=== PATIENT | female | born 1985 | race Caucasian/White ===

== ENCOUNTER 2020-10-31 10:04 | Outpatient (CLI) | payer OTHER, SELFPAY ==
--- NOTE | ~2020-10-31 | CT_ITS ---
EXAMINATION: CT abdomen pelvis w con INDICATION: Unspecified abdominal pain TECHNIQUE: Computed tomographic images of the abdomen and pelvis were obtained after the administrati on of 100 cc of Omnipaque 350 intravenous contrast. The dose-length product (DLP) was 357.30 mGy-cm. Automated exposure control and iterative reconstruction technique were employed. COMPARISON: 07/25/2017 FINDINGS: Minimal dependent atelectasis is present in the lung bases. The heart size is normal. The g allbladder is surgically absent. The liver is diffusely low in attenuation when compared with the spl een, consistent with hepatic steatosis. The spleen, pancreas, and adrenal glands are normal. The kidn eys are unremarkable. A moderate volume of colonic stool is present. No pathologically enlarged abdom inal or pelvic lymph nodes are identified. There is no free intraperitoneal gas or evidence of bowel obstruction. There is a small fat-containing umbilical hernia. IMPRESSION: 1. No CT correlate for the patient's symptoms. Reviewed, dictated and finalized at location B.
== END 2020-10-31 10:05 | disposition home or self-care (01) ==
LOC: ANHIMG 10:08
PROVIDERS: PCP Family Medicine; Visit Provider Nurse Practitioner Obstetrics & Gynecology
DX: R10.9 Unspecified abdominal pain (principal)
CPT/HCPCS: 74177; Q9967

== ENCOUNTER → 2020-12-27 09:20 | Outpatient (CLI) | payer OTHER, SELFPAY ==
--- NOTE | ~2020-12-27 | MMUS_ITS ---
EXAMINATION: MM diagnostic tiago BI w patricia, US breast BI complete HISTORY: Right breast lump TECHNIQUE: ML, MLO and craniocaudal 3-D tomosynthesis images of both breasts were performed and synth etic 2-D images were generated. CAD analysis was submitted and interpreted. High resolution bilateral complete breast ultrasound was performed. COMPARISON: None BREAST PARENCHYMAL COMPOSITION: The breasts are heterogeneously dense, which may obscure small masses . FINDINGS: MAMMOGRAPHIC FINDINGS: No reproducible mass or architectural distortion, malignant calcification, skin thickening or retract ion of either breast is detected. ULTRASOUND: At the area of palpable complaint of the right breast at 7:00 8 cm from the nipple there is an approx imately 7 mm ill-defined hypoechoic area with mild vascularity, without posterior shadowing. Six kumar h diagnostic right mammogram and right breast ultrasound follow-up are recommended. No suspicious mass or shadowing of either breast is detected otherwise. IMPRESSION: 1. Probably benign sonographic finding of right breast at 7:00 2. 6 month diagnostic right mammogram and right breast ultrasound follow-up are recommended. BI-RADS category 3, probably benign findings. Reviewed, dictated and finalized at location A. IMPRESSION: 1. Probably benign sonographic finding of right breast at 7:00 2. 6 month diagnostic right mammogram and right breast ultrasound follow-up are recommended. BI-RADS category 3, probably benign findings.
== END ==
PROVIDERS: Visit Provider Nurse Practitioner Obstetrics & Gynecology
DX: N63.10 Unspecified lump in the right breast, unspecified quadrant (principal); R92.8 Other abnormal and inconclusive findings on diagnostic imaging of breast
CPT/HCPCS: 76641; 77062; 77066; G0279

== ENCOUNTER 2022-06-10 15:20 | Observation (INO) | payer OTHER, SELFPAY ==
[2022-06-10 16:02] VITALS: BP 133/87; PULSE 95
[2022-06-10 16:15] VITALS: BP 135/89; PULSE 90; TEMP 37.1
[2022-06-10 16:31] VITALS: BMI 28.8
[2022-06-10 17:29] LABS: Basophils Absolute Auto 0.1 K/mm3 (0.0-0.1); Basophils Percent Auto 0.6 % (0.2-1.2); Eosinophils Absolute Auto 0.2 K/mm3 (0-0.3); Eosinophils Percent Auto 1.7 % (0-4.4); Hematocrit 29.3 % (37.0-47.0); Hemoglobin 9.7 g/dL (12.0-15.0); Immature Granulocyte Absolute 0.05 K/mm3 (0.00-0.031); Immature Granulocyte Percent A 0.5 % (0-0.5); Lymphocytes Absolute Auto 2.47 K/mm3 (0.9-3.2); Lymphocytes Percent Auto 22.3 % (18.3-44.2); Mean Corpuscular HGB Conc 33.1 g/dl (32-36); Mean Corpuscular Hemoglobin 31.8 pg (26-34); Mean Corpuscular Volume 96.1 fl (80-100); Mean Platelet Volume 10.5 fl (7.4-10.4); Monocytes Absolute Auto 0.5 K/mm3 (0.1-0.6); Monocytes Percent Auto 4.7 % (2.6-8.5); Neutrophils Absolute Auto 7.8 K/mm3 (1.3-6.7); Neutrophils Percent Auto 70.2 % (45.5-73.1); Platelet Count Result 332 k/mm3 (150-375); Red Blood Count 3.05 M/mm3 (4.2-5.4); Red Cell Distribution Width 13.4 % (11.5-14.5); White Blood Count 11.1 K/mm3 (4.5-10.0)
[2022-06-10] MEDS: SODIUM CHLORIDE 0.9% IV 1,000 ML 100 ML IV CONT (17:42)
[2022-06-10] MEDS: GENTAMICIN 80MG/SOD CHL 50 ML 80 MG/50 ML BAG 100 MG IVPB (17:42)
[2022-06-10 17:45] LABS: Alanine Aminotransferase 18 U/L (6-35); Albumin Level 3.5 g/dL (3.5-5.1); Alkaline Phosphatase 112 U/L (38-126); Anion Gap 6 mmol/L (8-16); Aspartate Amino Transferase 20 U/L (14-36); Bilirubin,Total 0.2 mg/dL (0.2-1.3); Blood Urea Nitrogen 3 mg/dL (7-17); Calcium 8.8 mg/dL (8.4-10.2); Carbon Dioxide 25 mmol/L (22-30); Chloride 105 mmol/L (98-107); Estimated CRCL calculation 120 ml/min; Estimated Glomerular Filt Rate > 60; Glucose 84 mg/dL (65-110); Potassium 2.9 mmol/L (3.4-5.0); Sodium 136 mmol/L (137-145)
[2022-06-10 19:20] VITALS: BP 135/89; PULSE 90
--- NOTE | 2022-06-10 19:28 | PC.NURSE ---
1520 Pt was sent from [facility] [place] for IV antibiotics for UTI. She has Hx sever UTI and ended up sepsis in 2013. Dr. Rosales reviewed culture sensitivities and gentamycin was ordered.
[2022-06-10] MEDS: ACETAMINOPHEN 500 MG TABLET 1000 MG PO (19:55)
[2022-06-11] VITALS (7 sets, daily range): BP systolic 112–148; BP diastolic 78–93; PULSE 68–93; TEMP 36.6–36.8; O2SAT 89–100
[2022-06-11] MEDS: GENTAMICIN 60 MG/50 ML NS 60 MG/50 ML BAG 100 MG IVPB ×3 (01:52→17:51)
--- NOTE | 2022-06-11 01:54 | PC.NURSE ---
pt sleeping. no complaints.
[2022-06-11 07:28] LABS: Glucose Point of Care 92 mg/dl (65-105)
--- NOTE | 2022-06-11 07:46 | PM.IMHP ---
H&P: HPI History of Present Illness Date/Time: 06/11/22 07:46 Chief Complaint: Urinary tract infection Narrative: this patient is a 36-year-old multiparous female at 24 weeks gestation with a long history of urinary tract infection and pyelonephritis. She is having routine cultures grew a multi resistant E coli. it was recommended that she get IV antibiotics. She is admitted here relatively asymptomatic for IV antibiotics. She receiving gentamicin. We will continue up to 6-8 doses For for incomplete 36-48 hours. She is afebrile. She denies any nausea, vomiting, fever, chills. She denies any chest pain or shortness of breath. Review of Systems Review of Systems: All systems reviewed & are unremarkable except as noted in HPI and below Constitutional: Constitutional: Denies chills, Denies fatigue, Denies fever(s) and Denies weakness Eyes: Eyes: Denies blurry vision, Denies change in vision, Denies loss of peripheral vision, Denies loss of vision, Denies other visual disturbances and Denies eye pain ENT: Denies vertigo, Denies dizziness, Denies hearing loss, Denies mouth pain, Denies nasal obstruction, Denies neck mass and Denies neck pain Cardiovascular: Cardiovascular: Denies chest pain, Denies diaphoresis, Denies syncope, Denies leg edema and Denies dyspnea Respiratory: Respiratory: Denies chest congestion, Denies cough, Denies hemoptysis, Denies dyspnea and Denies wheezing Gastrointestinal: Gastrointestinal: Denies abdominal pain, Denies constipation, Denies diarrhea, Denies nausea and Denies vomiting Genitourinary: Genitourinary: Denies hematuria, Denies change in libido, Denies nocturia, Denies genital lesions, Denies flank pain and Denies urinary urgency Musculoskeletal: Musculoskeletal: Denies abnormal gait, Denies back pain, Denies myalgias, Denies arthralgias, Denies joint swelling, Denies muscle weakness and Denies neck pain Integumentary/Breasts: Skin/Breast: Denies swelling, Denies breast pain, Denies breast mass, Denies dry skin, Denies nipple discharge, Denies unusual bruising and Denies jaundice Neurologic: Denies Neuro-related abnormal movements, Denies Abnormal speech present, Denies abnormal gait, Denies behavioral changes, Denies confusion, Denies vertigo, Denies dizziness, Denies syncope, Denies loss of vision, Denies memory loss, Denies convulsions and Denies weakness Psychiatric: Psychiatric: Denies abnormal sleep pattern, Denies behavioral changes, Denies change in libido, Denies confusion, Denies depression, Denies anhedonia and Denies memory loss Endocrine: Endocrine: Reports no additional endocrine complaints, Denies change in libido and Denies fatigue Hematologic/Lymphatic: Hematologic/Lymphatic: Reports no additional hematologic/lymphatic complaints Allergic/Immunologic: Allergic/Immunologic: Reports no additional allergic/immunologic complaints and Denies wheezing Meds Home Medications and Allergies Allergies Allergy/AdvReac Type Severity Reaction Status Date / Time codeine Allergy Unknown Hives / Verified 08/13/17 09:21 Red Face Penicillins Allergy Unknown Verified 07/25/17 16:32 Vital Signs Vital Signs - 24 hr 06/10/22 16:41 06/10/22 16:02 06/10/22 16:15 Temperature 98.7 F Pulse Rate 95 90 Blood Pressure 133/87 135/89 Blood Pressure [Left Arm] Pulse Oximetry Oxygen Delivery Room Air 06/11/22 07:11 06/11/22 07:17 06/10/22 19:20 Temperature 98.1 F Pulse Rate 68 90 Blood Pressure 112/78 Blood Pressure [Left Arm] 135/89 Pulse Oximetry 89 L 96 Oxygen Delivery Exam Const: General: cooperative, healthy appearing, comfortable and no acute distress; No confusion Orientation/consciousness: oriented to person, oriented to place, oriented to time and No confusion HENMT: Head: normal to inspection Ears: external ears normal Face/Nose/Sinus: Normal external nose present and normal facial exam Face and sinus: normal facial exam Eyes: General: appe
[2022-06-11 09:40] LABS: Glucose Point of Care 149 mg/dl (65-105)
[2022-06-11] MEDS: ACETAMINOPHEN 500 MG TABLET 1000 MG PO (13:04)
[2022-06-11 14:09] LABS: Glucose Point of Care 79 mg/dl (65-105)
[2022-06-11 18:06] LABS: Gentamicin Trough 1.1 ug/mL (<1.0)
[2022-06-11 19:22] LABS: Glucose Point of Care 99 mg/dl (65-105)
[2022-06-11 20:50] LABS: Gentamicin Peak 1.9 ug/mL (5.0-12.0)
[2022-06-11] MEDS: GENTAMICIN SULFATE INJ 120 MG in DEXTROSE 5% 100 ML 100 MG IVPB (22:08)
[2022-06-12 03:41] VITALS: BP 123/80; PULSE 67
[2022-06-12 03:45] VITALS: BP 128/79; PULSE 64
[2022-06-12 04:00] VITALS: BP 134/78; PULSE 68
[2022-06-12] MEDS: GENTAMICIN SULFATE INJ 120 MG in DEXTROSE 5% 100 ML 100 MG IVPB ×2 (06:30→14:00)
[2022-06-12 06:42] LABS: Glucose Point of Care 94 mg/dl (65-105)
[2022-06-12 11:00] VITALS: BP 131/90; PULSE 90; RESP 20; TEMP 36.4; O2SAT 100
[2022-06-12 11:01] VITALS: BP 131/91; PULSE 90
[2022-06-12 11:08] LABS: Glucose Point of Care 117 mg/dl (65-105)
--- NOTE | 2022-06-12 11:49 | PM.OBPNVD ---
OB - PN: Subj Subjective Date/time seen: 06/12/22 11:49 No complaints, no back pain, no fever, no nausea vomiting, no chills, good movement OB - PN: Obj Data Labs CBC & Chem 7: 06/10/22 17:06 06/10/22 17:06 Labs: Laboratory Results - last 24 hr 06/11/22 06/11/22 06/11/22 14:02 16:44 19:10 POC Capillary Glucose 79 99 Gentamicin Peak Gentamicin Trough 1.1 06/11/22 06/12/22 06/12/22 20:10 06:38 11:05 POC Capillary Glucose 94 117 H Gentamicin Peak 1.9 L Gentamicin Trough OB - PN A/P Assessment and Plan (1) History of pyelonephritis: Code(s): Z87.448 - Personal history of other diseases of urinary system Status: Acute (2) History of sepsis: Code(s): Z86.19 - Personal history of other infectious and parasitic diseases Status: Acute (3) Urinary tract infection: Code(s): N39.0 - Urinary tract infection, site not specified Status: Acute Plan this patient is a 36-year-old female, multiparous, with a 25 week Twin gestation and a history of urosepsis. she has a drug resistant E coli infection of the urinary tract. She was hospitalized for IV antibiotics. She has received many doses now of IV gentamicin over about a 36 hour period of time. She can receive 1 more. We going to start outpatient oral Macrobid. There is reassuring status x2. She will follow-up soon for repeat urine culture and routine care of twin gestation. Time Spent With Patient Time: Total time spent is greater than 50% in coordination of care (as documented) at patient's floor/unit and/or counseling patient: Review of Systems Review of Systems: All systems reviewed & are unremarkable except as noted in HPI and below Constitutional: Constitutional: Denies chills, Denies fatigue, Denies fever(s) and Denies weakness Eyes: Eyes: Denies blurry vision, Denies change in vision, Denies loss of peripheral vision, Denies loss of vision, Denies other visual disturbances and Denies eye pain ENT: Denies vertigo, Denies dizziness, Denies hearing loss, Denies mouth pain, Denies nasal obstruction, Denies neck mass and Denies neck pain Cardiovascular: Cardiovascular: Denies chest pain, Denies diaphoresis, Denies syncope, Denies leg edema and Denies dyspnea Respiratory: Respiratory: Denies chest congestion, Denies cough, Denies hemoptysis, Denies dyspnea and Denies wheezing Gastrointestinal: Gastrointestinal: Denies abdominal pain, Denies constipation, Denies diarrhea, Denies nausea and Denies vomiting Genitourinary: Genitourinary: Denies hematuria, Denies change in libido, Denies nocturia, Denies genital lesions, Denies flank pain and Denies urinary urgency Musculoskeletal: Musculoskeletal: Denies abnormal gait, Denies back pain, Denies myalgias, Denies arthralgias, Denies joint swelling, Denies muscle weakness and Denies neck pain Integumentary/Breasts: Skin/Breast: Denies swelling, Denies breast pain, Denies breast mass, Denies dry skin, Denies nipple discharge, Denies unusual bruising and Denies jaundice Neurologic: Denies Neuro-related abnormal movements, Denies Abnormal speech present, Denies abnormal gait, Denies behavioral changes, Denies confusion, Denies vertigo, Denies dizziness, Denies syncope, Denies loss of vision, Denies memory loss, Denies convulsions and Denies weakness Psychiatric: Psychiatric: Denies abnormal sleep pattern, Denies behavioral changes, Denies change in libido, Denies confusion, Denies depression, Denies anhedonia and Denies memory loss Endocrine: Endocrine: Reports no additional endocrine complaints, Denies change in libido and Denies fatigue Hematologic/Lymphatic: Hematologic/Lymphatic: Reports no additional hematologic/lymphatic complaints Allergic/Immunologic: Allergic/Immunologic: Reports no additional allergic/immunologic complaints and Denies wheezing Exam Const: General: cooperative, healthy appearing, comfortable and no
--- NOTE | 2022-06-12 11:55 | PM.OBDSVD ---
DS: Admitting Diagnosis Discharge Date 06/12/22 Admitting Diagnosis Urinary tract infection, drug resistance E coli OB - DS: Summary Hospital Course Hospital Course: 36-year-old multiparous female with twin gestation and history of urosepsis had a drug-resistant bacteria growing in her urine. She was admitted for IV antibiotics. She has been stable and asymptomatic throughout her stay. She has received multiple doses of gentamicin. She will be discharged. OB Procedures : Other ( IV antibiotics) OB Procedures Intrapartum: Other OB Procedures: : None Time Spent with Patient Time attestation: Total time spent providing and/or coordinating discharge services: DS: Data Data Completed and Pending Labs on day of discharge: Labs from last 24 hours 06/12/22 06/12/22 06/11/22 11:05 06:38 20:10 POC Capillary Glucose 117 H 94 Gentamicin Peak 1.9 L Gentamicin Trough 06/11/22 06/11/22 06/11/22 19:10 16:44 14:02 POC Capillary Glucose 99 79 Gentamicin Peak Gentamicin Trough 1.1 Discharge Plan Discharge Attending physician on discharge: Aakash Rosales Discharging Clinician: Aakash Rosales Anticipated Discharge Date/Time: 06/12/22 15:00 Patient Disposition: Home, Self-Care Activity: pelvic rest Diet: regular Discharge Instructions: OB ANTEPARTUM DISCHARGE INSTRUCTIONS This information is given to help you properly care for yourself at home after your discharge from the hospital. Follow these instructions until your doctor tells you otherwise. DIET: Advance As Tolerated ACTIVITY: As Tolerated RETURN TO LABOR AND DELIVERY IF YOU HAVE: Any Change In Baby's Normal Movement Pattern Any Leakage of Fluid Contractions 5-7 Minutes Apart with Increasing Intensity More than 4 Contractions in an Hour Vaginal Bleeding Warning Signs of Pre-term Labor as per Handout Additional Reasons to Return to Labor and Delivery: Contractions may feel like abdominal pain, tightening, cramping, pressure, back ache, or thigh ache. FOLLOW-UP CARE: Keep Next Scheduled Appointment To see Dr. Bobby Grant released to patient or family? N/A Medications from home returned to patient? N/A I Acknowledge Receipt of and Understand the Above Instructions I Have Received Written Pharmaceutical Information on Discharge Meds IF YOU HAVE ANY QUESTIONS REGARDING THESE INSTRUCTIONS, PLEASE CALL [phone]. IF PROBLEMS ARISE, CALL YOUR PROVIDER. IF EMERGENCY CARE IS NEEDED, [facility] EMERGENCY ROOM IS AVAILABLE 24 HOURS A DAY. Patient Instructions: Antibiotic Form Stand Alone Forms: General Discharge Information, Work/School Release IP Follow-up/Referrals: Aakash Rosales MD [Physician] - Discharge Medications: New nitrofurantoin monohyd/m-cryst [Macrobid] 100 mg Capsule 100 mg PO Q12H 10 Days Qty: 14 0RF Rx Instructions: must administer with a meal/food Date of admission: 06/10/22 15:20 Primary Care Provider: UNKNOWN,DOCTOR Admitting Provider: Aakash Rosales Attending physician on admission: Aakash Rosales Condition: Stable
== END 2022-06-12 14:55 | disposition home or self-care (01) ==
PROVIDERS: Admitting Provider Obstetrics & Gynecology; Visit Provider Obstetrics & Gynecology
DX: O23.42 Unspecified infection of urinary tract in pregnancy, second trimester (principal); N39.0 Urinary tract infection, site not specified; B96.20 Unspecified Escherichia coli [E. coli] as the cause of diseases classified elsewhere; Z87.448 Personal history of other diseases of urinary system; O23.02 Infections of kidney in pregnancy, second trimester; Z86.19 Personal history of other infectious and parasitic diseases; O30.002 Twin pregnancy, unspecified number of placenta and unspecified number of amniotic sacs, second trimester; Z3A.25 25 weeks gestation of pregnancy; Z23 Encounter for immunization
CPT/HCPCS: 36415; 59025; 80053; 80170; 82948; 85025; 90471; 90686; 96365; 96366; 96374; 96376; A9270; G0008; G0378; G0379; J1580; J7030

== ENCOUNTER 2022-07-19 16:01 | Outpatient (CLI) | payer OTHER, SELFPAY ==
[2022-07-19 16:15] VITALS: BP 142/96; PULSE 82
[2022-07-19 16:29] LABS: Basophils Absolute Auto 0.1 K/mm3 (0.0-0.1); Basophils Percent Auto 0.5 % (0.2-1.2); Eosinophils Absolute Auto 0.3 K/mm3 (0-0.3); Eosinophils Percent Auto 2.3 % (0-4.4); Hematocrit 32.7 % (37.0-47.0); Hemoglobin 10.5 g/dL (12.0-15.0); Immature Granulocyte Absolute 0.06 K/mm3 (0.00-0.031); Immature Granulocyte Percent A 0.5 % (0-0.5); Lymphocytes Absolute Auto 1.84 K/mm3 (0.9-3.2); Lymphocytes Percent Auto 16.6 % (18.3-44.2); Mean Corpuscular HGB Conc 32.1 g/dl (32-36); Mean Corpuscular Volume 96.5 fl (80-100); Mean Platelet Volume 10.8 fl (7.4-10.4); Monocytes Absolute Auto 0.7 K/mm3 (0.1-0.6); Monocytes Percent Auto 6.5 % (2.6-8.5); Neutrophils Absolute Auto 8.2 K/mm3 (1.3-6.7); Neutrophils Percent Auto 73.6 % (45.5-73.1); Platelet Count Result 290 k/mm3 (150-375); Red Blood Count 3.39 M/mm3 (4.2-5.4); Red Cell Distribution Width 13.2 % (11.5-14.5); White Blood Count 11.1 K/mm3 (4.5-10.0)
[2022-07-19 16:30] VITALS: BP 136/96; PULSE 96
[2022-07-19 16:40] LABS: Alanine Aminotransferase 45 U/L (6-35); Albumin Level 3.6 g/dL (3.5-5.1); Alkaline Phosphatase 214 U/L (38-126); Anion Gap 6 mmol/L (8-16); Aspartate Amino Transferase 36 U/L (14-36); Bilirubin,Total 0.2 mg/dL (0.2-1.3); Blood Urea Nitrogen 7 mg/dL (7-17); Calcium 8.3 mg/dL (8.4-10.2); Carbon Dioxide 22 mmol/L (22-30); Chloride 106 mmol/L (98-107); Estimated Glomerular Filt Rate > 60; Glucose 88 mg/dL (65-110); Potassium 3.6 mmol/L (3.4-5.0); Sodium 134 mmol/L (137-145); Uric Acid 5.3 mg/dL (2.5-7.5)
[2022-07-19 16:56] LABS: Add Urine Microscopic? NO; Appearance Urine Clear (Clear); Bilirubin Urine Negative (Negative); Blood Urine Negative (Negative); Color Urine Yellow (Yellow); Glucose Urine UA Negative (Negative); Ketones Urine Negative (Negative); Leukocyte Esterase Ur Negative LEU/UL (NEGATIVE); Nitrate Urine Negative (Negative); Protein Urine Negative (Negative); Specific Grav Ur <= 1.005 (1.001-1.035); Urobilinogen Urine 0.2 mg/dL (<2.0); pH Urine 6.5 (5.0-9.0)
[2022-07-19 16:59] LABS: Creatinine Urine 17.5 mg/dL; Total Protein Urine Random 15 mg/dL; Ur Ttl Prot Creatinine Ratio 0.86 mg/mg (0-0.20)
[2022-07-19 17:00] VITALS: BP 138/99; PULSE 97
--- NOTE | 2022-07-19 17:09 | PC.NURSE ---
Karon Mejias notified of BP's and lab results. Orders received to call same results to Dr Rosales.
--- NOTE | 2022-07-19 17:14 | PC.NURSE ---
Dr Rosales notified of lab results and BP's. [facility] home, patient to follow up in office on Friday for a [facility] referral.
[2022-07-19 17:15] VITALS: BP 145/108; PULSE 94
== END 2022-07-19 17:30 | disposition home or self-care (01) ==
LOC: ANHOBOP 16:05 → ANHOBPP 16:08
PROVIDERS: Visit Provider Advanced Practice Midwife
DX: O13.9 Gestational [pregnancy-induced] hypertension without significant proteinuria, unspecified trimester (principal); Z3A.00 Weeks of gestation of pregnancy not specified
CPT/HCPCS: 36415; 59025; 80053; 81003; 82570; 84156; 84550; 85025; 87086; 99199

== ENCOUNTER 2022-07-20 18:00 | Outpatient (NON) | payer OTHER, SELFPAY ==
[2022-07-20 18:21] VITALS: BMI 29.0
[2022-07-20 21:07] LABS: Collection Time Urine 24 HOURS
[2022-07-20 21:18] LABS: Creatinine Urine 31.6 mg/dL; Patient Weight 158 Lbs; Total Protein Urine Random 19 mg/dL
[2022-07-20 23:22] LABS: Creatinine Clearance Urine 61.7 ml/min (75-125); Total Protein Urine 24 Hr 266 mg/24hr (28-141); Total Volume 24 Hour Urine 1400 ml
== END 2022-07-20 18:01 | disposition home or self-care (01) ==
LOC: ANHOBOP 18:10
PROVIDERS: Visit Provider Obstetrics & Gynecology
DX: O13.9 Gestational [pregnancy-induced] hypertension without significant proteinuria, unspecified trimester (principal); Z3A.00 Weeks of gestation of pregnancy not specified
CPT/HCPCS: 81050; 82575; 84156

== ENCOUNTER 2024-12-28 14:28 | Outpatient (CLI) | payer OTHER, SELFPAY ==
--- NOTE | ~2024-12-28 | MM_ITS ---
EXAMINATION: MM screening [facility]ago BI w patricia HISTORY: Screening TECHNIQUE: Craniocaudal and mediolateral oblique 3-D tomosynthesis images were obtained and synthetic 2-D images were generated. CAD analysis was submitted and interpreted. COMPARISON: Comparison to multiple prior studies sequentially, with oldest reviewed study dated 03/2021. BREAST PARENCHYMAL COMPOSITION: Not dense: There are scattered areas of fibroglandular density. FINDINGS: There is no evidence of suspicious mass, calcification, or architectural distortion to sugg est malignancy in either breast. There has been no suspicious interval change. IMPRESSION: 1. No mammographic evidence of malignancy. 2. Recommend routine screening mammography in one year. BI-RADS Category 1: Negative Reviewed, dictated and finalized at location B.
--- OUTSIDE RECORDS SUMMARY | 2024-12-28 15:57 | XMS_ITS | Clinical Summary ---
Author Organization [facility] Address [address] [place] [address] Phone Care Team Providers Care Election Judge Name Role Phone Provider, Unknown Primary Care Provider Unavaila ble Social History Tobacco Use Types Packs/Day Years Used Date Smoking Tobacco: Never Assessed Comments Unknown Sex and Gender Information Value Date Recorded Sex Assigned at Not on file Legal Sex Female 10:38 PM [employer] Gender Identity Not on file Sexual Orientation Not on file Plan of Treatment Not on file Care Teams Election Judge Relationship Specialty Start Date End Date Provider, Unknown UNKNOWN PCP - General 09/27/16
--- OUTSIDE RECORDS SUMMARY | 2024-12-28 15:57 | XMS_ITS | Clinical Summary ---
Author Organization [facility] Address [address] [place] [address] Care Team Providers Care Tax Processor Name Role Phone Shai Millre MD Primary Care Provider [phone] Source Comments [facility],non-owned Affiliates and Associated Physician Practices is amultiple site organization consisting of ambulatory clinics and hospital sitesin [place], [place], [place] and [place]. This disclosure is being madepursuant to the Care Everywhere program and may not contain all information available regarding this patient. Last updated 18.[facility] Allergies Active Allergy Reactions Criticality Noted Date Comments Penicillamine Other Low 07/29/2015 unknown Sulfa Drugs Rash Medium 03/12/2022 Sulfamethoxazole W-Trimethoprim Rash Medium 02/19 Medications * This document contains information received from the source organization and may not represent a complete record from that organization. * Be aware that medications may not be up to date on this document. Alwaysverify current medications with the patient. Vit-Fe Fumarate-FA ( vitamin) 28-0.8 MG tablet Take 1 (one) tablet by mouth once daily Active amphetamine-dextroa mphetamine XR 24hr (Adderall XR) 30 MG capsule Take 1 (one) capsule by mouth every morning Active potassium chloride ER (Klor-Con M) 20 MEQ tabletIndications:H ypokalemia Take 1 (one) tablet by mouth once daily Reasons: Low Amount of Potassium in the Blood 5 tablet 03/19/20 Active Additional Information Patient not taking.Reported on 08/29/2022 docusate sodium (Colace) 100 MG capsuleIndications: Constipation Take 1 (one) capsule by mouth 2 times daily Reasons: Constipation 60 capsule 5 03/27/20 22 Active Additional Information Patient not taking.Reported on 09/26/2022 doxylamine (Unisom) 25 MG tabletIndications:N ausea and/or Vomiting in Take 1/2 tablet in the morning and 1 tablet at night Reasons: Nausea and Vomiting in 60 tablet 5 03/27/20 22 Active Additional Information Patient not taking.Reported on 08/29/2022 levothyroxine (Synthroid) 112 MCG tabletIndications:H ypothyroidism Take 1 (one) tablet by mouth once daily Reasons: Underactive Thyroid 30 tablet 1 04/16/20 Active Additional Information Patient not taking.Informant: Patient, Reported on 08/29/2022 famotidine (Pepcid) 20 MG tabletIndications:H eartburn Take 1 (one) tablet by mouth at bedtime Reasons: Heartburn 30 tablet 5 04/16/20 22 Active Additional Information Patient not taking.Reported on 08/29/2022 aspirin EC (Ecotrin) 81 MG tabletIndications:p revention of preeclampsia Take 2 (two) tablets by mouth once daily Reasons: prevention of preeclampsia 120 tablet 5 05/08/20 22 Active Additional Information Patient not taking.Reported on 08/29/2022 magnesium oxide (Mag-Ox) 400 MG tabletIndications:p revention of headaches Take 1 (one) tablet by mouth once daily Reasons: prevention of headaches 30 tablet 5 05/08/20 22 Active Additional Information Patient not taking.Reported on 08/29/2022 pantoprazole EC (Protonix) 20 MG tabletIndications:H eartburn Take 1 (one) tablet by mouth once daily Reasons: Heartburn 30 tablet 3 06/26/20 22 Active Additional Information Patient not taking.Reported on 08/29/2022 nitrofurantoin monohyd macro crystals (Macrobid) 100 MG capsuleIndications: prevention of UTI Take 1 (one) capsule by mouth once daily Reasons: prevention of UTI 30 capsule 5 06/26/20 22 Active Additional Information Patient not taking.Reported on 07/30/2022 Blood Glucose Monitoring Suppl (FreeStyle [place] Lite) w/Device KIT Use 1 Each as directed 1 1 Each 06/26/20 22 Active Additional Information Patient not taking.Reported on 08/29/2022 blood glucose (OneTouch Verio) test strip Use 1 (one) strip 5 times daily 150 strip 3 06/26/20 22 Active OneTouch Delica Lancets 33G MISC Use 1 Each 5 times daily 100 Each 3 06/26/20 22 Active Additional Information Patient not taking.Reported on 08/29/2022 famotidine (Pepcid) 20 MG tablet Take 1 (one) tablet by mouth every 12 hours 60 tablet 2 07/17/20 22 Active Additional Information Patient not taking.Reported on 08/29/2022 amphetamine-dextroa mphetamine (Adderall) 20 MG tablet Take 1 (one) tablet by mouth every afternoon Active levothyroxine (Synthroid) 137 MCG tabletIndications:H ypothyroidism Take 1 (one) tablet by mouth daily before breakfast Reasons: Underactive Thyroid 30 tablet 1 08/22/19 23 Active hydrOXYzine HCl (Atarax) 25 MG tablet Take 1 (one) tablet by mouth every 6 hours as needed for Itching 30 tablet 1 08/21/19 23 Active ursodiol (Actigall) 300 MG capsule Take 1 (one) capsule by mouth 2 times daily 60 capsule 1 08/21/19 23 Active Additional Information Patient not taking.Reported on 08/29/2022 plus iron (Natatab) 29-1 MG tablet Take 1 (one) tablet by mouth once daily 30 tablet 3 08/21/19 23 Active iron polysaccharides (Niferex 150) 150 MG capsule Take 1 (one) capsule by mouth once daily 100 capsule 08/21/19 23 Active polyethylene glycol 3350 (Miralax) 17 GM/SCOOP powder Take 17 (seventeen) g by mouth once daily 238 g 08/21/19 23 Active Additional Information Patient not taking.Reported on 08/29/2022 acetaminophen (Tylenol) 500 MG capsule Take 2 (two) capsules by mouth every 6 hours as needed for Fever or Pain 50 capsule 08/21/19 23 Active ibuprofen (Motrin) 600 MG tablet Take 1 (one) tablet by mouth every 6 hours as needed for Pain 30 tablet 08/21/19 Active docusate sodium (Colace) 100 MG capsule Take 1 (one) capsule by mouth once daily 60 capsule 08/21/19 Active Additional Information Patient not taking.Reported on 09/26/2022 oxyCODONE, immediate release, (Roxicodone) 5 MG tabletIndications:S upervision of high-risk of elderly multigravida (HCC) Take 1 (one) tablet by mouth every 4 hours as needed for Pain 12 tablet 08/21/19 Active Additional Information Patient not taking.Reported on 09/26/2022 NIFEdipine CR 24hr (Adalat CC) 30 MG tablet Take 1 (one) tablet by mouth once daily Take on an empty stomach. 30 tablet 1 08/21/19 Active Active Problems Patient Care Coordination No te Formatting of this note migh t be different from the original. [employer] form completed. Diapers given. 08/29/2022 (PP), 09/26/22 pp Problem Noted Date Diagnosed Date SGA (small for gestational a ge), , affecting care of mother, antepartum, third trimester, fetus 2 07/23/2022 Advanced maternal age in multigravida, third tri mester 06/18/2022 Diet controlled gestational diabetes mellitus (GDM) in second trimester 06/05/2022 Overview (06/05/2022): MFM not Managing per OB at this time, 06/05 Dichorionic diamniotic twin in second trimester 05/08/2022 Abnormal chromosomal and gen etic finding on screening mother 03/27/2022 Overview (03/27/2022): High risk trisomy 21, dizygotic twin Supervision of high-risk of elderly mu ltigravida 03/19/2022 Overview (03/19/2022): History of autoimmune pancreatitis: ALYSIA: negative, CMP WNL, lipase: 10, amylase: 16 Hypothyroid in , antepartum 03/19/2022 Overview (03/27/2022): TSH: 8.06, free T4: 0.83--working to establish with endocrinology Recent labs: 03/13: TSH: 8.06, free T4: 0.83 (had not been consistently taking her levothyroxine that week due to vacation). repeated 03/26: TSH: 1.6, free T4: 0.93--continues levothyroxine 137mcg History of sepsis following kidney infection Overview (03/19/2022): Recs: monthly urine cultures during , if has two or more UTI in , offer suppression Resolved Problems Problem Noted Date Diagnosed Date Resolved Date Depression screen 06/20/2022 09/03/2022 Overview (06/20/2022): 06/20/2022 Rashad Mckeon was screened for depression using the Hunter Depression Scale (EPDS) at her [facility] initial evaluation on 06/20/2022. Her initial score at baseline was 10. Based off of her score of 10, Rashad does not warrant follow up Patient will continue to be screened throughout , at intervals no closer than two weeks, for continued surveillance and early identification of depression until delivery. Patient reports mental health history. Diagnoses include anxiety. [facility] abnormality in pre gnancy - Blayne twins, high risk NIPT for Trisomy 21 05/14/2022 Overview (06/24/2022): Images from the original note were not included. [facility] PATIENT--PLEASE CALL [phone] (ex 2) IF TRIAGED OR ADMITTED Care Provider: Dr. Rosales [facility] consultants involved: MFM- Dr. Lazo; Resource Conservation Manager- Dr. Sam Diagnosis: Dichorionic, diamniotic twins. High Risk NIPT for Trisomy 21 for 1 fetus echoes 06/20/22: 1. Twin A: Normal echocardiogram. 2. Twin B: Mild transverse arch hypoplasia, may be normal variant or could reflect coarctation of the aorta. Will plan for follow-up echocardiogram after baby is born. Planned surveillance: Initial MCFP 06/20/22. Recommend serial growth ultrasounds and weekly testing starting at 32 weeks (as long growth remains appropriate). Continue routine OB care Delivery location: with primary OB at hospital of choice Delivery mode: per usual OB indications Desired Delivery GA: to be determined but no later than 38 weeks follow up: per cardiology: Ductal Dependent: No Delivery Site: Local Hospital - plan for echocardiogram to reevaluate aortic arch Transfer to [facility]: No Rapid Transport to [facility]: No Anesthesiology Fellow: Dr. 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 See Images or Cardiac under Chart Review for US/ ECHO/ MRI reports. Encounter for ultrasound 04/11/2022 09/02/2022 Immunizations Immunization Administration Dates Next Due MMR 08/19/2022() TDAP (7yrs+) 08/19/2022(),07/31/2022 Family History Medical History Relation Name Comments Cataract Maternal Grandfather Hypertension Maternal Grandfather Relation Name Status Comments Maternal Grandfather Mother Alive Social History Tobacco Use Types Packs/Day Years Used Date Smoking Tobacco: Some Days Cigarettes Smokeless Tobacco: Never Alcohol Use Standard Drinks/Week Comments Yes 0 (1 standard drink = 0.6 oz pur e alcohol) Overall Financial Resource Strain (CARDIA) Ans[place] r Date Recorded How hard is it for you to pa y for the very basics like food, housing, medical care, and heating? Not hard at all 09/26/2022 [facility] - Occupational Stress Questionnaire Answer Date Recorded Do you feel stress - tense, restless, nervous, or anxious, or unable to sleep at night because your mind is troubled all the time - these days? Only a little 09/26/2022 Hunger Vital Sign Answer Date Recorded Within the past 12 months, y ou worried that your food would run out before you got the money to buy more. Never true 09/27/19 23 Within the past 12 months, t he food you bought just didn't last and you didn't have money to get more. Never true 09/26/2022 PRAPARE - Transportation Answer Date Re corded In the past 12 months, has l ack of transportation kept you from medical appointments or from getting medications? No 03/2023 In the past 12 months, has l ack of transportation kept you from meetings, work, or from getting things needed for daily living? No 09/26/2022 Housing Stability Vital Sign Answer [place] e Recorded In the last 12 months, was t here a time when you were not able to pay the mortgage or rent on time? No 09/26/2022 In the last 12 months, how many places have you lived? 1 09/26/2022 In the last 12 months, was t here a time when you did not have a steady place to sleep or slept in a fdc (including now)? No 09/26/2022 Hunter Depression Scale Answer Date Recorded Hunter Depression Scale Total 3 09/26/2022 The thought of harming myself has occurred to me . Never 09/26/2022 Comments No Sex and Gender Information Value Date Recorded Sex Assigned at Not on file Legal Sex Female 5:56 PM ENTERPRISE SOFTWARE ENGINEER Gender Identity Not on file Sexual Orientation Not on file Last Filed Vital Signs Vital Sign Reading Time Taken Comments Blood Pressure 124/87 09/26/2022 9:13 AM ENTERPRISE SOFTWARE ENGINEER Pulse 92 09/26/2022 9:13 AM ENTERPRISE SOFTWARE ENGINEER Temperature 36.7 C (98 F) 08/21/2022 1:30 PM ENTERPRISE SOFTWARE ENGINEER Respiratory Rate 18 08/21/2022 1:30 PM ENTERPRISE SOFTWARE ENGINEER Oxygen Saturation 100% 08/21/2022 1:30 PM ENTERPRISE SOFTWARE ENGINEER Inhaled Oxygen Concentration - - Weight 63 kg (139 lb) 09/26/2022 9:13 AM ENTERPRISE SOFTWARE ENGINEER Height 157.5 cm (5' 2) 08/11/2022 12:41 PM ENTERPRISE SOFTWARE ENGINEER Body Mass Index 25.42 08/11/2022 12:41 PM ENTERPRISE SOFTWARE ENGINEER Plan of Treatment Health Maintenance Due Date Last Done Comments HEPATITIS B VACCINE (1 of 3 - 19+ 3-dose series) 2004 PNEUMOCOCCAL VACCINE (1 of 2 - PCV) 2004 COVID-19 VACCINE ( - 2023-2 5 season) 2024 10/30/2021, 10/03/2021 DEPRESSION SCREENING 07/21/2024 PAP SMEAR 02/08/2025 02/08/2022, 02/08/2022 INFLUENZA VACCINE (Season Ended) 2025 07/28/2017 DTAP/TDAP/TD VACCINES (2 - T d or Tdap) 07/31/2032 07/31/2022 ZOSTER VACCINE (1 of 2) 10/20/2035 HIV SCREENING Completed 07/03/2022, 03/13/2022 HEPATITIS C SCREENING Completed 08/06/2022 HIB VACCINE Aged Out No longer eligi ble based on patient's age to complete this topic HPV VACCINE Aged Out No longer eligi ble based on patient's age to complete this topic MENINGOCOCCAL (Group B) VACCINE SHARED DECISION-MAKING Aged Out No longer eligible based on patient's age to complete this topic MENINGOCOCCAL GROUPS A/C/Y/W VACCINE Aged Out No longer eligible b ased on patient's age to complete this topic Procedures Procedure Name Priority Date/Time Associated Diagnosis Comments HEPATITIS SCREEN ACUTE AM Draw 08/06/2022 4:20 AM ENTERPRISE SOFTWARE ENGINEER from Last 3 Months or Most Recently Relevant to Health Maintenance Results * HEPATITIS SCREEN ACUTE (08/06/2022 4:20 AM ENTERPRISE SOFTWARE ENGINEER) HAV Antibody IgM Non Reactive Non Reactive 08/06/2022 5:18 AM ENTERPRISE SOFTWARE ENGINEER [facility] HBsAg Non Reactive Non Reactive 08/06/2022 5:18 AM ENTERPRISE SOFTWARE ENGINEER [facility] HBc Antibody IgM Non Reactive Non Reactive 08/06/2022 5:18 AM ENTERPRISE SOFTWARE ENGINEER [facility] HCV Antibody Screen Non Reactive Non Reactive 08/06/2022 5:18 AM ENTERPRISE SOFTWARE ENGINEER [facility] Blood BLOOD SPECIMEN / Unknown Lab Venipuncture / Unknown 08/06/2022 4:20 AM ENTERPRISE SOFTWARE ENGINEER 08/06/2022 4:27 AM ENTERPRISE SOFTWARE ENGINEER Narrative [facility] - 08/06/2022 5:18 AM ENTERPRISE SOFTWARE ENGINEER Non Reactive - Antibodies to Hepatitis C virus (HCV) were not detected, result does not exclude early acute HCV infection. William Rangel MD LAB - CHEMISTRY ORDERABLES Final Result [facility] [address] [place] [address] from Last 3 Months or Most Recently Relevant to Health Maintenance Insurance CIG[employer] CIG[employer] Advance Directives * Full Code (Latest Code Status on File) Date Activated Date Inactivated Comments 08/18/2022 1:53 AM 08/21/2022 3:27 PM * Full Code Date Activated Date Inactivated Comments 07/30/2022 1:19 PM 08/18/2022 1:53 AM Care Teams Tax Processor Relationship Specialty Start Date End Date Shai Miller MD [id number] [id number] PCP - General 04/12/22
--- OUTSIDE RECORDS SUMMARY | 2024-12-28 15:57 | XMS_ITS | Clinical Summary ---
Author Organization [facility] Address [address] [address] Care Team Providers Care Steam Table Worker Name Role Phone Emelina Marroquin Idalia CARE TRAINER Unavailable + [phone] Roger Wills MD Primary Care Provider [phone] Jhonathan Nielsen MD Unavailable [phone] Hal Mckinney MD Unavailable [phone] Nickolas Talamantes MD Unavailable [phone] Allergies Active Allergy Reactions Criticality Noted Date Comments Venom-Honey Bee Itching Low 12/08/2024 Codeine Hives Medium 08/06/2017 Morphine Hives Medium 08/14/2017 Penicillamine Other (See comments) Low 07/29/2015 unknown unknown Penicillins Unknown 08/14/2017 FAMILY ALLERGY Sulfa (Sulfonamide Antibiotics) Rash Medium 01/11/2021 Medications cholecalciferol (VITAMIN D-3) 2000 unit tablet Take 2,000 Units by mouth daily 2 Active multivit-min/fe rrous fumarate (MULTI VITAMIN ORAL)Indication s:supplement Take 1 tablet by mouth every morning Active famotidine (PEPCID) 10 mg tablet Take 1 tablet (10 mg total) by mouth 2 (two) times a day 60 tablet 11 2 Active Synthroid 137 mcg tablet Take 1 tablet (137 mcg total) by mouth daily 30 tablet 11 2 Active methylPREDNISol one (MEDROL DOSEPACK) 4 mg DosepackIndicat ions:Bee sting, accidental or unintentional, initial encounter Take as directed on package. 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 Continue Synthroid 137 mcg Recheck in 6 wks Follow up in 6 m Assessment & Plan (03/22/2021 4:54 PM CDT): Lower Synthroid to 137 mcg daily but only half a tablet on Friday Recheck levels in 2 to 3 months Follow-up in 6 months Assessment & Plan (12/25/2020 8:17 AM CDT): Uncontrolled Increased levothyroxine to 137 mcg daily Rechecked TFT's in 3 m Assessment & Plan (02/11/2019 10:24 AM CDT): Your goal of treatment is to keep TSH , T3 and T4 within normal range. Options of treatment, include LT 4 ( levothyroxine ) ,combination LT 4 plus T3 ( Levothyroxine + Liothyronine ) and natural hormonal preparations, including Bacova, Westhroid, etc. Well conducted clinical studies have not shown any difference in outcomes, in terms of symptoms when comparing these different options. Some patients Taking one or other form of treatment still manifest a variety of symptoms, in spite of normal thyroid hormone levels. At an individual levels, some patient feel better with some specific preparation, including Bacova. However, many symptoms persist in patient, regardless of the form of treatment. Adjustments can always make to the dosages and The kind of preparation to use, as long as thyroid levels are within within range. Bringing the thyroid levels to supraphysiologic doses ( above normal ) is strongly recommended against , due to the high risk of side effects, including cardiac dysrhythmias ( irregular heart beat ) and bone density loss . Take your thyroid medication on empty stomach, preferably in the morning, 1 hour apart from food and other medications. Due to the narrow therapeutic range of Levothyroxine ( small changes in dose make a big difference on thyroid medication blood levels ) , brand name is strongly recommended. The medication should be taken daily. If one or more pills are missing in a week, they can be taken all together at once, making sure at the end of the week, all 7 tabs have been taken. Will recheck thyroid function tests . Will start combination therapy with Synthroid and Cytomel Recheck levels in 2 m F/u in 6 m Resolved Problems Problem Noted Date Diagnosed Date Resolved Date Sepsis 12/13/2021 12/13/2021 Pyelonephritis 12/13/2021 12/18/2021 Sepsis with acute renal fail ure without septic shock 12/13/2021 12/18/2021 Hypercalcemia 12/13/2021 12/18/2021 Hyponatremia 12/13/2021 12/18/2021 Sepsis with acute renal fail ure without septic shock 12/13/2021 12/13/2021 History of acute pancreatitis 08/06/2017 12/13/2021 Assessment & Plan (08/06/2017 9:24 PM AEROGRAPHER): The patient is a very good history toddler caregiver but I still need to review the patient's CT scan and blood work from [facility]. The patient agrees to obtain a CD of her CT so that I can review it with the radiologist. If the etiology of the pancreatitis is still uncertain, an endoscopic ultrasound will be pursued. For now the patient will continue on a low-fat diet. Repeat blood work will be performed (including amylase, lipase, and liver chemistries) for any recurrent symptoms. Heartburn 08/06/2017 12/13/2021 Assessment & Plan (08/06/2017 9:26 PM AEROGRAPHER): Patient was advised to follow reflux instructions. She feels that right now p.r.n. treatment is appropriate for her. Prophylactic treatment with H2 blockers can be used if the patient identifies l gurjit dietary offenders . TYRON (acute kidney injury) Encounters Date Type Department Care Team Description 12/08/2024 5:45 PM CDT Office Visit [facility] Care at [address] [address] Shelly Bennett NP Bee sting, accidental or unintentional, initial encounter (Primary Dx) from Last 3 Months Surgical History Surgery Date Site/Laterality Comments CHOLECYSTECTOMY BREAST SURGERY 05/2021 lift Medical History Medical History Date Comments GERD (gastroesophageal reflux disease) Pancreatitis 2018 Depression Thyroid disease Family History Medical History Relation Name Comments KEYSHA disease Mother Sinusitis Mother Thyroid disease Mother Relation Name Status Comments Mother Alive Social History Tobacco Use Types Packs/Day Years Used Date Smoking Tobacco: Former Cigarettes 1 10 Smokeless Tobacco: Never Alcohol Use Standard Drinks/Week Comments Not Currently 0 (1 standard drink = 0.6 oz pur e alcohol) Socially AUDIT-C Answer Date Recorded Q1: How often do you have a drink containing alc ohol? Monthly or less 11/16/2021 Q2: How many drinks containi ng alcohol do you have on a typical day when you are drinking? 1 or 2 11/16/2021 Frequency of Binge Drinking Not on file 10/20 PHQ-2 Answer Date Recorded PHQ-2 Total Score (If total score is 3 or more points, staff should administer the PHQ-9) 0 05/06/2022 Comments No Sex and Gender Information Value Date Recorded Sex Assigned at Not on file Legal Sex Female 2:15 PM AEROGRAPHER Gender Identity Female 12/21/2020 1:52 PM CDT Sexual Orientation Straight 12/21/2020 1: 52 PM CDT Obstetrics History Last Filed Vital Signs Vital Sign Reading Time Taken Comments Blood Pressure 112/80 12/08/2024 5:55 PM CDT Pulse 87 12/08/2024 5:55 PM CDT Temperature 36.7 C (98.1 F) 12/08/2024 5:55 PM CDT Respiratory Rate 22 12/08/2024 5:55 PM CDT Oxygen Saturation 99% 12/08/2024 5:55 PM CDT Inhaled Oxygen Concentration - - Weight 56.7 kg (125 lb) 12/08/2024 5:55 PM CDT Height 157.5 cm (5' 2) 05/28/2023 7:39 PM AEROGRAPHER Body Mass Index 22.86 05/28/2023 7:39 PM AEROGRAPHER Plan of Treatment Health Maintenance Due Date Last Done Comments Cervical Cancer Screening 1985 Hepatitis C Screening 1985 Varicella Vaccines (1 of 2 - 13+ 2-dose series) 1998 Regular Well Visit/Exam 18-64 10/20/2003 Depression Screening 05/06/2023 05/06/2022, 12/21/2020, 02/11/2019, Additional history exists Covid-19 Vaccine ( season) 2024 10/30/2021, 10/03/2021 Influenza Vaccine (Season Ended) 2025 07/28/2017 DTaP/Tdap/Td Vaccine (8 - Td or Tdap) 07/31/2032 07/31/2022, 03/04/2011, 12/29/1999, Additional history exists Hepatitis B Screening Completed 03/04/2011, 009 HPV Vaccines Aged Out No longer eligi ble based on patient's age to complete this topic Pneumococcal vaccine <65 Aged Out No longer eligible based on patient's age to complete this topic Insurance [facility] [employer] Address: [facility] [id number] [address] [employer] [facility] Advance Directives For more information, please contact: [phone] * Full Code (Latest Code Status on File) Date Activated Date Inactivated Comments 12/13/2021 1:45 AM 12/18/2021 6:36 PM Care Teams Steam Table Worker Relationship Specialty Start Date End Date Roger Wills MD PCP - General Family Medicine 02/13/21 Emelina Marroquin NP Nurse Practitioner Nurse Practitioner 01/03/21 [place] [address] [place] [address] Consulting Physician Plastic Surgery 11/29/21 [place] [address] [place] [address] Consulting Physician Nephrology 12/18/21 [place] [address] [place] [address] Consulting Physician Urology 12/18/21
--- OUTSIDE RECORDS SUMMARY | 2024-12-28 15:57 | XMS_ITS | Referral Summary ---
Author Organization [facility] Address [address] [address] Care Team Providers Care Dramatic Teacher Name Role Phone Emelina Marroquin Idalia SENIOR CONSTRUCTION MANAGER Unavailable [phone] Roger Wills MD Primary Care Provider [phone] Jhonathan Nielsen MD Unavailable [phone] Hal Mckinney MD Unavailable [phone] Nickolas Talamantes MD Unavailable [phone] Encounters Date Type Department Care Team Description 12/08/2024 5:45 PM CDT Office Visit [facility] at [address] [address] Shelly Bennett NP Bee sting, accidental or unintentional, initial encounter (Primary Dx) from Last 3 Months Allergies Active Allergy Reactions Criticality Noted Date [...] directed on package. 21 tablet 5 12/15/19 25 Active Problems Problem Noted Date Diagnosed Date [...] Liothyronine ) and natural hormonal preparations, including [place], Westhroid, etc. Well conducted clinical studies have not shown any difference in outcomes, in terms of symptoms when comparing these different options. Some patients Taking one or other form of treatment still manifest a variety of symptoms, in spite of normal thyroid hormone levels. At an individual levels, some patient feel better with some specific preparation, including [place]. 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. The patient agrees to obtain a [...] 12/13/2021 Assessment & Plan (08/06/2017 9:26 PM FLAT DRIER): Patient was advised to follow reflux instructions. She feels that right now p.r.n. treatment is appropriate for her. Prophylactic treatment with H2 blockers can be used if the patient identifies l shaynaely dietary offenders . TYRON (acute kidney injury) Social History Tobacco Use Types Packs/Day Years [...] on file Legal Sex Female 2:15 PM FLAT DRIER Gender Identity Female 12/21/2020 1:52 PM CDT Sexual Orientation Straight 12/21/2020 1: 52 PM CDT Last Filed Vital Signs Vital Sign Reading [...] 157.5 cm (5' 2) 05/28/2023 7:39 PM FLAT DRIER Body Mass Index 22.86 05/28/2023 7:39 PM FLAT DRIER Plan of Treatment Not on file Insurance [employer] Address: [facility] [id number] [place] [address] [employer] Address: [address] [place] [address] [employer] Address: [address] [place] [address] Advance Directives For more information, please contact: [phone] * Full Code (Latest Code Status on File) Date Activated Date Inactivated Comments 12/13/2021 1:45 AM 12/18/2021 6:36 PM Care Teams Dramatic Teacher Relationship Specialty Start Date End Date Roger Wills MD PCP - General Family Medicine 02/13/21 Emelina Marroquin NP Nurse Practitioner Nurse Practitioner 01/03/21 [place] [address] [place] [address] Consulting Physician Plastic Surgery 11/29/21 [place] [address] [place] [address] Consulting Physician Nephrology 12/18/21 [place] [address] [place] [address] Consulting Physician Urology 12/18/21
--- OUTSIDE RECORDS SUMMARY | 2024-12-28 15:58 | XMS_ITS | Data Portability ---
Author Organization [facility] Address [address] [place] [address] Care Team Providers Care Cook Boat Name Role Phone OBED MORALES Primary Care Provider [phone] Assessment Encounter Date Assessment Date Assessment LastModified by Organization Details LastModified Time 07/19/2022 07/19/2022 Patient is _30__weeks . Discussed plan. Not available 07/19/2022 16:57:18 Plan of Treatment Reminders Order Date Submit Date Provider Last Modified By Organization Details Last Modified Time Details Appointments None recorded. Lab urinalysis, dipstick 2023 024 nasrin Mildred, [address], [address], [place], [address], 4 16:11:34 urinalysis, dipstick 2022 023 tabyan Mildred, [address], [address], [place], [address], 3 15:13:47 test, urine 2022 023 nasrin Mildred, [address], [address], [place], [address], 3 15:13:47 Referral None recorded. Procedures None recorded. Surgeries salpingecto my, laparoscopi c (SURG) [address] [facility], [address], [place], [address], 3 16:51:49 Imaging US, pelvis, complete 2022 023 [email or web address] [address], [address], [place], [address], 4 13:37:20 non-stress test 2021 022 [email or web address] [address], [address], [place], [address], 2 16:26:22 Medication Orders Macrobid 100 mg capsule 2022 023 [id number], [address], [place], [place], [id number], 3 15:00:08 Diflucan 150 mg tablet 2022 023 [id number], [address], [place], [place], [id number], 3 15:00:07 Patient TargetsNo targets recorded. Patient InstructionsNo instructions recorded. Reason for Referral None Reported. Results Created Date Observation Date Name Description Value Unit Range Abnormal Flag Note LastModifiedBy Organization Detail LastModifiedTime 07/03/2007/03/2022 HEMAT OCRIT (HCT) HCT 33.1 % (based on docume nted legal sex) 37.4-4 8.3 low Not Available [facility] (Lab) [address], [place], [address], 07/04/2022 06:58:51 07/03/20 22 07/03/2022 HEMOG LOBIN (HGB) HGB 10.8 g/dL (based on docume nted legal sex) 11.9-1 5.8 low Not Available [facility] (Lab) [address], [place], [address], 07/04/2022 06:58:52 07/03/20 22 07/03/2022 HIV 1/2 ANTIG EN/AN TIBOD Y, REFLE X CONFI RMATI ON HIV antigen/anti body Nonrea ctive nonrea ctive HIV-1 antig en and HIV-1 /HIV- 2 antib odies were not detec osman. No labor atory evide nce of HIV infec tion. Not Available [facility] (Lab) [address], [place], [address], 07/04/2022 06:58:52 07/03/20 22 07/03/2022 CBC (HEMO GRAM) WBC 12.9 10'3/ uL 3.6-10 .2 high Not Available [facility] (Lab) [address], [place], [address], 07/04/2022 07:07:39 07/03/20 22 07/03/2022 CBC (HEMO GRAM) RBC 3.71 10'6/ uL (based on docume nted legal sex) 4.10-5 .30 low Not Available [facility] (Lab) [address], [place], [address], 07/04/2022 07:07:39 07/03/20 22 07/03/2022 CBC (HEMO GRAM) HGB 11.5 g/dL (based on docume nted legal sex) 11.9-1 5.8 low Not Available [facility] (Lab) [address], [place], [address], 07/04/2022 07:07:39 07/03/20 22 07/03/2022 CBC (HEMO GRAM) HCT 35.5 % (based on docume nted legal sex) 37.4-4 8.3 low Not Available [facility] (Lab) [address], [place], [address], 07/04/2022 07:07:39 07/03/20 22 07/03/2022 CBC (HEMO GRAM) MCV 95.7 fL 82.0-9 9.0 Not Available [facility] (Lab) [address], [place], [address], 07/04/2022 07:07:39 07/03/20 22 07/03/2022 CBC (HEMO GRAM) MCH 31.0 pg 27.0-3 3.0 Not Available [facility] (Lab) [address], [place], [address], 07/04/2022 07:07:39 07/03/20 22 07/03/2022 CBC (HEMO GRAM) MCHC 32.4 g/dL 32.0-3 6.0 Not Available [facility] (Lab) [address], [place], [address], 07/04/2022 07:07:39 07/03/20 22 07/03/2022 CBC (HEMO GRAM) RDW 13.2 % 11.0-1 5.0 Not Available [facility] (Lab) [address], [place], [address], 07/04/2022 07:07:39 07/03/20 22 07/03/2022 CBC (HEMO GRAM) plt 391 10'3/ uL 150-45 0 Not Available [facility] (Lab) [address], [place], [address], 07/04/2022 07:07:39 07/03/20 22 07/03/2022 CBC (HEMO GRAM) MPV 11.1 fL 9.8-12 .7 Not Available [facility] (Lab) [address], [place], [address], 07/04/2022 07:07:39 07/03/20 22 07/03/2022 CBC (HEMO GRAM) NRBC's 0.0 % 0 Not Available [facility] (Lab) [address] [place], [address], 07/04/2022 07:07:39 07/03/20 22 07/03/2022 CBC (HEMO GRAM) absolute NRBCs 0.0 10'3/ uL 0 07/04 5:01 AM: P indic ates parti al resul ts on a panel have been relea sed. Addit ional resul ts will follo w. 07/04 5:01 AM: This resul t has been final verif ied. No addit ional or rogers ed resul ts are expec osman. Not Available [facility] (Lab) [address], [place], [address], 07/04/2022 07:07:39 07/03/20 22 07/03/2022 URIC ACID uric acid 5.2 mg/dL 2.3-6. 6 Not Available [facility] (Lab) [address], [place], [address], 07/04/2022 07:07:40 07/03/20 22 07/03/2022 CMP(C OMPRE HENSI VE METAB OLIC PANEL ) sodium 137 mmol/ L 133-14 6 Not Available [facility] (Lab) [address], [place], [address], 07/04/2022 07:07:40 07/03/20 22 07/03/2022 CMP(C OMPRE HENSI VE METAB OLIC PANEL ) potassium 3.7 mmol/ L 3.5-5. 1 Not Available [facility] (Lab) [address] [place], [address], 07/04/2022 07:07:40 07/03/20 22 07/03/2022 CMP(C OMPRE HENSI VE METAB OLIC PANEL ) chloride 103 mmol/ L 98-107 Not Available [facility] (Lab) [address] [place], [address], 07/04/2022 07:07:40 07/03/20 22 07/03/2022 CMP(C OMPRE HENSI VE METAB OLIC PANEL ) carbon dioxide 23 mmol/ L 21-31 Not Available [facility] (Lab) [address] [facility] [place], [address], 07/04/2022 07:07:40 07/03/20 22 07/03/2022 CMP(C OMPRE HENSI VE METAB OLIC PANEL ) anion gap 11 mmol/ L 4-13 Not Available [facility] (Lab) [address], [place], [address], 07/04/2022 07:07:40 07/03/20 22 07/03/2022 CMP(C OMPRE HENSI VE METAB OLIC PANEL ) blood urea nitrogen 6 mg/dL 7-25 low Not Available [facility] (Lab) [address], [place], [address], 07/04/2022 07:07:40 07/03/20 22 07/03/2022 CMP(C OMPRE HENSI VE METAB OLIC PANEL ) creatinine 0.65 mg/dL 0.60-1 .30 Not Available [facility] (Lab) [address], [place], [address], 07/04/2022 07:07:40 07/03/20 22 07/03/2022 CMP(C OMPRE HENSI VE METAB OLIC PANEL ) egfrcr (CKD-epi 2020) >90 mL/mi n/1.7 3_m2 >=60 Not Available [facility] (Lab) [address], [place], [address], 07/04/2022 07:07:40 07/03/20 22 07/03/2022 CMP(C OMPRE HENSI VE METAB OLIC PANEL ) calcium 8.9 mg/dL 8.3-10 .5 Not Available [facility] (Lab) [address], [place], [address], 07/04/2022 07:07:40 07/03/20 22 07/03/2022 CMP(C OMPRE HENSI VE METAB OLIC PANEL ) glucose 84 mg/dL 70-100 Not Available [facility] (Lab) [address], [place], [address], 07/04/2022 07:07:40 07/03/20 22 07/03/2022 CMP(C OMPRE HENSI VE METAB OLIC PANEL ) protein, total 7.0 g/dL 6.4-8. 3 Not Available [facility] (Lab) [address], [place], [address], 07/04/2022 07:07:40 07/03/20 22 07/03/2022 CMP(C OMPRE HENSI VE METAB OLIC PANEL ) albumin 3.7 g/dL 3.5-5. 0 Not Available [facility] (Lab) [address], [place], [address], 07/04/2022 07:07:40 07/03/20 22 07/03/2022 CMP(C OMPRE HENSI VE METAB OLIC PANEL ) ALT 48 units /L 9-43 high Not Available [facility] (Lab) [address], [place], [address], 07/04/2022 07:07:40 07/03/20 22 07/03/2022 CMP(C OMPRE HENSI VE METAB OLIC PANEL ) alkaline phosphatase 184 units /L 34-104 high Not Available [facility] (Lab) [address], [place], [address], 07/04/2022 07:07:40 07/03/20 22 07/03/2022 CMP(C OMPRE HENSI VE METAB OLIC PANEL ) AST 39 units /L 13-39 Not Available [facility] (Lab) [address], [place], [address], 07/04/2022 07:07:40 07/03/20 22 07/03/2022 CMP(C OMPRE HENSI VE METAB OLIC PANEL ) bilirubin, total 0.4 mg/dL 0.2-1. 2 Not Available [facility] (Lab) [address], [place], [address], 07/04/2022 07:07:40 07/03/20 22 07/03/2022 TSH, REFLE X FREE T4 TSH 3.94 uIU/m L 0.30-5 .33 Not Available [facility] (Lab) [address], [place], [address], 07/04/2022 07:07:40 07/10/20 22 07/10/2022 URIC ACID uric acid 5.5 mg/dL 2.3-6. 6 Not Available [facility] (Lab) [address], [place], [address], 07/11/2022 05:48:54 07/10/20 22 07/10/2022 CMP(C OMPRE HENSI VE METAB OLIC PANEL ) sodium 135 mmol/ L 133-14 6 Not Available [facility] (Lab) [address], [place], [address], 07/11/2022 05:48:55 07/10/20 22 07/10/2022 CMP(C OMPRE HENSI VE METAB OLIC PANEL ) potassium 3.9 mmol/ L 3.5-5. 1 Not Available [facility] (Lab) [address], [place], [address], 07/11/2022 05:48:55 07/10/20 22 07/10/2022 CMP(C OMPRE HENSI VE METAB OLIC PANEL ) chloride 103 mmol/ L 98-107 Not Available [facility] (Lab) [address], [place], [address], 07/11/2022 05:48:55 07/10/20 22 07/10/2022 CMP(C OMPRE HENSI VE METAB OLIC PANEL ) carbon dioxide 25 mmol/ L 21-31 Not Available [facility] (Lab) [address] [place], [address], 07/11/2022 05:48:55 07/10/20 22 07/10/2022 CMP(C OMPRE HENSI VE METAB OLIC PANEL ) anion gap 7 mmol/ L 4-13 Not Available [facility] (Lab) [address], [place], [address], 07/11/2022 05:48:55 07/10/20 22 07/10/2022 CMP(C OMPRE HENSI VE METAB OLIC PANEL ) blood urea nitrogen 6 mg/dL 7-25 low Not Available [facility] (Lab) [address], [place], [address], 07/11/2022 05:48:55 07/10/20 22 07/10/2022 CMP(C OMPRE HENSI VE METAB OLIC PANEL ) creatinine 0.66 mg/dL 0.60-1 .30 Not Available [facility] (Lab) [address], [place], [address], 07/11/2022 05:48:55 07/10/20 22 07/10/2022 CMP(C OMPRE HENSI VE METAB OLIC PANEL ) egfrcr (CKD-epi 2020) >90 mL/mi n/1.7 3_m2 >=60 Not Available [facility] (Lab) [address], [place], [address], 07/11/2022 05:48:55 07/10/20 22 07/10/2022 CMP(C OMPRE HENSI VE METAB OLIC PANEL ) calcium 8.6 mg/dL 8.3-10 .5 Not Available [facility] (Lab) [address], [place], [address], 07/11/2022 05:48:55 07/10/20 22 07/10/2022 CMP(C OMPRE HENSI VE METAB OLIC PANEL ) glucose 79 mg/dL 70-100 Not Available [facility] (Lab) [address] [place], [address], 07/11/2022 05:48:55 07/10/20 22 07/10/2022 CMP(C OMPRE HENSI VE METAB OLIC PANEL ) protein, total 6.4 g/dL 6.4-8. 3 Not Available [facility] (Lab) [address], [place], [address], 07/11/2022 05:48:55 07/10/20 22 07/10/2022 CMP(C OMPRE HENSI VE METAB OLIC PANEL ) albumin 3.4 g/dL 3.5-5. 0 low Not Available [facility] (Lab) [address], [place], [address], 07/11/2022 05:48:55 07/10/20 22 07/10/2022 CMP(C OMPRE HENSI VE METAB OLIC PANEL ) ALT 28 units /L 9-43 Not Available [facility] (Lab) [address], [place], [address], 07/11/2022 05:48:55 07/10/20 22 07/10/2022 CMP(C OMPRE HENSI VE METAB OLIC PANEL ) alkaline phosphatase 182 units /L 34-104 high Not Available [facility] (Lab) [address], [place], [address], 07/11/2022 05:48:55 07/10/20 22 07/10/2022 CMP(C OMPRE HENSI VE METAB OLIC PANEL ) AST 23 units /L 13-39 Not Available [facility] (Lab) [address], [place], [address], 07/11/2022 05:48:55 07/10/20 22 07/10/2022 CMP(C OMPRE HENSI VE METAB OLIC PANEL ) bilirubin, total 0.4 mg/dL 0.2-1. 2 Not Available [facility] (Lab) [address] [place], [address], 07/11/2022 05:48:55 07/19/20 22 07/19/2022 CULTU RE: URINE result report SEE RESULT S BELOW Test: Cultu re: Urine Speci men Sourc e: Urine Voide d Speci men Type: Urine Speci men Date: 07/19 4:37 PM Resul t Date: 023 6:01 AM Resul t Statu s: Final resul t Abnor mal: No Resul ting Lab: [facility] [address] [facility] [address] Tel: CULTU RE ----- ----- ----- --- No growt h in 1 day (dete ction level of 10,00 0 colon ies / ml.) Not Available [facility] (Lab) [address], [place], [address], 07/21/2022 07:03:41 10/02/19 23 10/01/2022 BRENDA Siddiqui GC NOTE report summary See Notes Not Available [facility] [address], [place], [address], 10/01/2022 16:39:13 11/30/19 23 11/29/2022 CULTU RE: URINE result report SEE RESULT S BELOW Test: Cultu re: Urine Speci men Sourc e: Urine Voide d Speci men Type: Urine Speci men Date: 2022 3:23 PM Resul t Date: 2022 2:44 AM Resul t Statu s: Final resul t Abnor mal: No Resul ting Lab: [facility] [address] [facility] [address] Tel: CULTU RE ----- ----- ----- --- No growt h in 1 day (dete ction level of 10,00 0 colon ies / ml.) Not Available [facility] (Lab) [address], [place], [address], 12/01/2022 03:47:11 11/30/1911/29/2022 pregn tanner test, urine HCG negati ve Not Available [address], [place], [address], 11/29/2022 15:13:02 11/30/19 23 11/29/2022 urina lysis , dipst ick Leukocytes + Not Available [facility] vu [address], [place], [address], 11/29/2022 15:12:54 11/30/19 23 11/29/2022 urina lysis , dipst ick pH 8 Not Available Mildred [address], [place], [address], 11/29/2022 15:12:54 11/30/19 23 11/29/2022 urina lysis , dipst ick Blood + Not Available Mildred [address], [place], [address], 11/29/2022 15:12:54 11/30/19 23 11/29/2022 urina lysis , dipst ick Specific [place] 1.005 Not Available [facility] [address], [place], [address], 11/29/2022 15:12:54 02/17/20 24 02/17/2024 CULTU RE: URINE result report SEE RESULT S BELOW Test: Cultu re: Urine Speci men Sourc e: Urine - Clean Catch Speci men Type: Urine Speci men Date: 2023 1617 Resul t Date: 024 0406 Resul t Statu s: Final resul t Abnor mal: No Resul ting Lab: [facility] [address] [facility] [address] Tel: CULTU RE ----- ----- ----- --- No growt h in 1 day (dete ction level of 10,00 0 colon ies / ml.) Not Available [facility] (Lab) [address], [place], [address], 02/19/2024 05:09:18 02/17/20 24 02/17/2024 urina lysis , dipst ick Protein trace Not Available Mildred [address], [place], [address], 02/17/2024 16:11:17 02/17/20 24 02/17/2024 urina lysis , dipst ick pH 6 Not Available Mildred [address], [place], [address], 02/17/2024 16:11:17 02/17/20 24 02/17/2024 urina lysis , dipst ick Specific [place] 1.025 Not Available [facility] [address], [place], [address], 02/17/2024 16:11:17 06/26/20 22 06/26/2022 US, obste tric, follo w-up No observ ation record ed. [facility] [address] [place] [address], [address], 06/28/2022 11:36:55 06/28/20 22 06/26/2022 US, obste tric, follo w-up No observ ation record ed. [email or web address] [facility] [address] [place] [address], [address], 07/02/2022 10:20:01 07/03/20 22 07/03/2022 US, obste tric, limit ed No observ ation record ed. [email or web address] Mildred [address], [place], [address], 07/03/2022 15:53:15 07/03/20 22 07/03/2022 US, obste tric, follo w-up No observ ation record ed. [email or web address] Norma [address], [place], [address], 07/04/2022 18:04:16 07/17/20 22 07/17/2022 US, obste tric, 2nd or 3rd trime ster No observ ation record ed. [email or web address] [facility] [address] [place], [address], 07/19/2022 10:24:54 07/19/20 22 07/17/2022 US, obste tric, follo w-up No observ ation record ed. [email or web address] [facility] [place] [address] [place], [address], 07/23/2022 11:34:51 07/19/20 22 07/19/2022 non-s tress test No observ ation record ed. [email or web address] Mildred [address], [place], [address], 07/20/2022 21:12:28 07/23/19 23 07/23/2022 US, obste tric, follo w-up No observ ation record ed. [email or web address] [facility] [address], [address], 07/25/2022 10:34:42 Result Notes None recorded. 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 10:47:21 Evaluati on finding Completed 201810/18/2020 Hematuri a, unspecif ied;Prac whitney ID: 0001 Denise Lugo [facility] 10:46:31 Noninfec tious enteriti s of intestin e [id number] Active 2018 Bessie Lang [facility], [facility] 11:34:37 Urinary tract infectio us disease [id number] Completed 201810/18/2020 Urinary tract infectio n, site not specifie d;Practi ce ID: 0001 Denise Lugo sarah, [facility] 10:47:30 [facility] [id number] Completed 201810/18/2020 [facility] hematuri a;Practi ce ID: 0001 Denise smith, [facility] 10:46:03 Adult health examinat ion Completed 201410/18/2020 ROUTINE MEDICAL EXAM;Rec orded Elsewher e: No Locat ion: [facility] S ource: EHR [employer] andi: N Practi ce ID: 0001 Chico lable Time: 02:30:00 PM Denise Leetz [facility], [facility] 10:45:55 Speciali d medical examinat ion Completed 201410/18/2020 Gynecolo gical Examinat ion;Jimenez rded Elsewher e: No Locat ion: [facility] S ource: [facility] [employer] andi: N Practi ce ID: 0001 [place] l[place] Time: 02:30:00 PM Denise Leetz sarah, [facility] 10:47:23 Pregnanc y test negative [id number] Completed 201210/18/2020 Pregnanc y examinat ion or test, negative result;R ecorded Elsewher e: No Locat ion: [facility] S ource: [facility] [employer] andi: N Practi ce ID: 0001 [place] l[place] Time: 04:00:00 PM Denise smith, [facility] 10:47:01 Amenorrh ea [id number] Completed 201110/18/2020 Absence of menstrua tion;Rec orded Elsewher e: No Locat ion: [facility] S ource: [facility] [employer] andi: N Practi ce ID: 0001 [place] lable Time: 03:30:00 PM Denise Lugo null, [facility] 10:45:[address] Concept Completed 201710/18/2020 Encntr for general adult medical exam w/o abnormal findings ;Recorde d Elsewher e: No Locat ion: Maci solo [facility] S ource: EHR [employer] andi: N Deborahti ce ID: 0001 [place] l[place] Time: 08:15:00 AM Denise Lugo sarah [facility] 10:47:19 Carbuncl e of leg (excludi ng foot) [id number] Completed 201110/18/2020 Carbuncl e and furuncle of leg, except foot;Rec orded Elsewher e: No [facility] N Deborahti ce ID: 0001 [place] lable Time: 03:30:00 PM Denise Lugo [facility] 10:46:16 Postpart um care Completed 201210/18/2020 Post Followup ;Recorde d Elsewher e: No Locat ion: Maile banda [facility] S ource: E[facility] [employer] andi: N Deborahti ce ID: 0001 [place] l[place] Time: 04:00:00 PM Denise Leetz sarah [facility] 10:46:59 Cytologi c finding [id number] Completed 201110/18/2020 Papanico laou smear of cervix with low grade squamous intraepi thelial lesion (LGSIL); Recorded Elsewher e: No [facility]at [facility] our[facility]: [facility] [employer] andi: N Practi ce ID: 0001 [place] lable Time: 11:15:00 AM Denise Leetz sarah [facility] 10:46:24 Dysuria [id number] Completed 201610/18/2020 Dysuria; Recorded Elsewher e: No [facility] N Arnulfo ce ID: 0001 [place] l[place] Time: 11:15:00 AM Denise smith [facility] 10:46:28 Poor growth affectin g manageme nt [id number] Completed 201210/18/2020 Poor growth, affectin g manageme nt of mother, antepart um conditio n or complica tion;Rec orded Elsewher e: No Locat ion: [facility] N Arnulfo ce ID: 0001 [place] l[place] Time: 03:45:00 PM Denise smith [facility] 10:46:57 Blood leukocyt e number above referenc e range [id number] Completed 201510/18/2020 Elevated white blood cell count, unspecif ied;Jimenez rded Elsewher e: No Locat ion: Maile solo [facility] N Arnulfo ce ID: 0001 [place] l[place] Time: 11:30:00 AM Denise smith [facility] 1 10:46:40 Abnormal cervical Papanico laou smear [id number] Completed 201110/18/2020 Other abnormal papanico laou smear of cervix and cervical HPV;Jimenez rded Elsewher e: No Locat ion: [facility] N Arnulfo ce ID: 0001 [place] l[place] Time: 11:15:00 AM Denise smith [facility] 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 1 11:34:34 Family planning surveill ance Completed 201310/18/2020 Surveill ance of other contrace ptive method;R ecorded Elsewher e: No Locat ion: [facility] S ource: E[facility] [employer] andi: N Deborahti ce ID: 0001 [place] l[place] Time: 02:15:00 PM Denise Lugo [facility] 1 10:46:33 Urgent desire to urinate [id number] Completed 201310/18/2020 URGENCY OF URINATIO N;Record ed Elsewher e: No Locat ion: [facility] S ource: [facility] [employer] andi: N Practi ce ID: 0001 [place] l[place] Time: 01:15:00 PM Denise Lugo [facility] 1 10:47:28 Ultrason ography Completed 201210/18/2020 Antenata l screenin g for malforma tion using ultrason ics;Jimenez rded Elsewher e: No Locat ion: [facility] S ource: [facility] [employer] andi: N Deborahti ce ID: 0001 [place] l[place] Time: 02:30:00 PM Denise Lguo [facility] 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 10:46:54 Screenin g for malignan t neoplasm of cervix Completed 201310/18/2020 Screenin g for malignan t neoplasm s of the cervix;R ecorded Elsewher e: No Locat ion: [facility] S ource: EHR Diamond [employer]isher andi: N Practi ce ID: 0001 [place] l[place] Time: 02:15:00 PM Denise smith [facility] 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 10:47:32 Removal of intraute rine device Completed 201010/18/2020 REMOVAL OF IUD;Prac whitney ID: 0001 Denise smith [facility] 10:47:06 Ill-defi kay intestin al infectio n Completed 201010/18/2020 No Show Fee;Prac whitney ID: 0001 Deniseaquiles smith, [facility] 10:46:38 Routine antenata l care Completed 201210/18/2020 Supervis ion of other normal pregnanc y;Practi ce ID: 0001 Denise smith, [facility] 10:47:10 Complica tion related to pregnanc y Completed 201210/18/2020 Weight Insuffic ient Antepart um;Pract ice ID: 0001 Denise Lugo sarah, [facility] 10:46:20 Prematur e rupture of membrane s with antenata l problem [id number] Completed 201210/18/2020 Prematur e rupture of membrane s, antepart um;Pract ice ID: 0001 Denise Lugo [facility], [facility] 10:47:03 Delivery normal [id number] Completed 201210/18/2020 Normal delivery ;Practic e ID: 0001 Denise smith, [facility] 10:46:26 Single live from singleto n pregnanc y [id number] Completed 201210/18/2020 Mother with single liveborn ;Practic e ID: 0001 Denise Leetz [facility], [facility] 10:47:16 Leukocyt osis [id number] Completed 201310/18/2020 LEUKOCYT OSIS NOS;Prac whitney ID: 0001 Deniseaquiles smith, [facility] 10:46:52 Pregnanc y [id number] Completed 202110/14/2022 Alejandra García sarah, [facility] 3 10:25:44 Adult attentio n deficit hyperact ivity disorder [id number] Completed adderall - serial [facility] 10:25:40 Sepsis 20028350 Completed acute with renal failure 11/2021 per MFM monthly urine culture, suppress ion abx if needed [facility] 10:25:40 History of cholecys tectomy 710244004 Completed 2013 Alejandra García [facility] 3 10:25:40 Herpes simplex 04759273 Completed valcylcl ovir daily Alejandra [facility] 3 10:25:40 Hypothyr oidism in pregnanc y 149602788 Completed Sees endocrin ologist Dr. Sams?* Synthroi d increase d to 162mcg per MFM & pt to f/u with Endo; rpt labs once trimeste r or 4-6 wks after change in dosage [facility] 10:25:40 Advanced maternal age 300727756 Completed Alejandra García [facility] 3 10:25:40 Twin pregnanc y [id number] Completed amada - early gtt screen, LD ASA 162mg, 1wk NST+BPP at 36wks, serial growth starting at 24 wks Alejandra García [facility] 3 10:25:40 Suspect trisomy 21 fetus [id number] Completed +NIPT - referred for genetic counseli ng/amnio - schd 04/11 Alejandra García [facility] 3 10:25:40 Hypokale jay 55947614 Completed recheck K+ Alejandra García [facility] 3 10:25:40 Pyelonep hritis 19317062 Completed history - check for bacterur ia monthly, supressi on abx if needed, Treate d with IV gent 06/10/22 followed by 10 days of po macrobid . Pt is now on prophyla ctic abx per M Alejandra García [facility] 3 10:25:40 Headache 93169963 Completed mag oxide sent by [facility] Alejandra [facility] 3 10:25:40 Anxiety 29255308 Completed [facility] rec counseli ng - need to touch base with pt to make sure she has the resource s she needs. ,rn Alejandra García [facility] 3 10:25:40 Anemia 650695386 Completed 2021 slowfe 1 tab daily - 07/03 04/27 hgb Alejandrapaula García [facility] 3 10:25:40 Gestatio nal diabetes mellitus 52517642 Completed 2021 Alejandra [facility] 3 10:25:40 Gestatio nal diabetes mellitus 52587712 Active 2021 Alejandra [facility] 3 10:25:40 Benign essentia l hyperten zachariah complica ting pregnanc y, childbir th and the puerperi um - not delivere d 102600882 Completed asa daily, per [facility] 07/10 pt to start checking BP BID Alejandra García [facility] 3 10:25:40 Tobacco user [id number] Completed rec cessatio n Alejandra [facility] 3 10:25:40 Echocard iogram abnormal [id number] Completed Baby B - narrowed transver se arch. Postnata l echo needed after delivery ! & CORD BLOOD CARRIER NEEDED on each baby after delivery !! [facility] 10:25:40 section - pregnanc y at term 197418486 Completed to do for twins and HTN at 37 weeks Alejandra [facility] 3 10:25:40 Pregnanc y-induce d hyperten zachariah 36857517 Completed Alejandra [facility] 3 10:25:40 Notes:SSM MFM Level II u/s & consult 03/13/22 8:15AM Problem Notes None recorded. Procedures Surgical History Date Name Laterality Status Provider Name and Address Organization Details Recorded Time 02/09/20 22 Date of Last Pap Smear completed [facility] 02/08/2022 15:45:07 09/19/19 22 procedure on neck completed [facility] 02/08/2022 15:49:38 07/21/19 21 Unlisted procedure breast completed [facility] 02/08/2022 15:48:46 02/19/20 20 Date of Last Mammogram completed [facility] 02/08/2022 15:43:44 07/21/19 14 Cholecystectomy completed [facility] 10/18/2020 11:05:25 07/21/19 04 extraction of wisdom tooth completed [facility] 02/08/2022 15:57:31 Cholecystectomy completed Alejandra [facility] 10/14/2022 10:24:44 Imaging Results None recorded. Procedure Notes None recorded. Medical Equipment None Reported. Allergies Allergen ID Allergen Name Allergen Category Reaction Reaction Severity Criticality Documentation Date Start Date Code Code System Note Provider Name and Address Organization Details Recorded Time 45995 sulfameth oxazole medicatio n hives Not available Not available 07/07/2020 13059 RxNorm React ion: hives ; Comme nt: [facility], [facility] 1 11:34:10 494 Substance with sulfonami de structure and antibacte rial mechanism of action (substanc e) medicatio n Not available Not available Not available 11/25/2019 97883 8003 SNOMED China smith, [facility] 0 11:27:53 495 trimethop rim medicatio n Not available Not available Not available 11/25/2019 02759 RxNorm China Reyes [facility], [facility] 0 11:28:08 Medications Name Sig Start Date Stop Date Status Note LastModified by Organization Details LastModified Time celecoxib 200 mg capsule TAKE 1 CAPSULE BY MOUTH TWICE A DAY FOR 5 DAYS 02/08 completed Not Available Not Available Not Available doxycycli ne hyclate 100 mg capsule 12/01 completed Not Available Not Available Not Available Vitamin B-6 25 mg tablet TAKE 1 (ONE) TABLET BY MOUTH 3 TIMES DAILY FOR 90 DOSES REASONS: NAUSEA AND VOMITING IN PREGNANC Y 11/29 completed Not Available Not Available Not Available clindamyc in HCl 300 mg capsule TAKE 1 CAPSULE BY MOUTH FOUR TIMES A DAY 02/08 completed Not Available Not Available Not Available fluconazo le 150 mg tablet TAKE 1 TABLET BY MOUTH IF NEEDED FOR YEAST. SECOND TABLET WILL BE TAKEN 48 HOURS AFTER THE FIRST active Not Available Not Available No t Available valacyclo vir 1 gram tablet TAKE 1 TABLET BY MOUTH THREE TIMES A DAY 12/01 completed Not Available Not Available Not Available Keflex 500 mg capsule take 1 capsule (500MG) by oral route every 12 hours 06/21 completed Prescrib ed Elsewher e: No Locat ion: [facility] odify By: [email or web address] trick En counter DateTime : 02/20/20 12 03:30:00 PM Not Available Not Available Not Available Adderall 5 mg tablet take 1 tablet by oral route 2 times every day before breakfas t and at noon 07/19 completed Prescrib ed Elsewher e: Yes Loca tion: Maile solo [facility] odify By: [email or web address] E ncounter DateTime : 07/21/19 12 07:56:53 PM Not Available Not Available Not Available fluconazo le 200 mg tablet 10/18 completed Not Available Not Available Not Available Effexor XR 37.5 mg capsule,e xtended release take 1 capsule by oral route every day with food 02/19 completed Prescrib ed Elsewher e: Yes Loca tion: Germanianishhazel banda [facility] odify By: babar larkin DateTime : 07/21/19 12 07:56:53 PM Not Available Not Available Not Available polysacch aride iron complex 150 mg iron capsule TAKE 1 CAPSULE BY MOUTH EVERY DAY 11/29 completed Not Available Not Available Not Available metronida zole 0.75 % (37.5 mg/5 gram) vaginal gel 12/01 completed Not Available Not Available Not Available prednison e 20 mg tablet TAKE 1 ORAL TABLET ONCE A DAY FOR 5 DAYS 02/08 completed Not Available Not Available Not Available Synthroid 100 mcg tablet TAKE 1 TABLET BY ORAL ROUTE EVERY DAY 04/15 completed Prescrib ed Elsewher e: No Locat ion: Maile banda [facility] odify By: geraldine Banda ncounter DateTime : 01/02/20 18 03:58:44 PM Not Available Not Available Not Available Prometriu m 100 mg capsule take 1 Capsule (100MG) by oral route every day for 12 days in the evening 10/11 completed Prescrib ed Elsewher e: No Locat ion: [facility] odify By: thai larkin DateTime : 10/01/19 14 11:15:00 AM Not Available Not Available Not Available nifedipin e ER 30 mg tablet,ex tended release TAKE 1 TABLET BY MOUTH EVERY DAY ON AN EMPTY STOMACH 11/29 completed Not Available Not Available Not Available valacyclo vir 500 mg tablet TAKE 1 TABLET BY MOUTH EVERY DAY 11/29 completed Not Available Not Available Not Available ciproflox acin 500 mg tablet TAKE 1 TABLET BY MOUTH TWICE A DAY FOR 7 DAYS 02/08 completed Not Available Not Available Not Available sulfameth oxazole 800 mg-trimet hoprim 160 mg tablet TAKE 1 TABLET BY MOUTH TWICE A DAY FOR 7 DAYS 02/08 completed Not Available Not Available Not Available liothyron ine 5 mcg tablet 12/01 completed Not Available Not Available Not Available aspirin 81 mg tablet,de layed release TAKE 2 (TWO) TABLETS BY MOUTH ONCE DAILY REASONS: PREVENTI ON OF PREECLAM PSIA 11/29 completed Not Available Not Available Not Available triamtere ne 37.5 mg-hydroc hlorothia zide 25 mg capsule TAKE 1 CAPSULE BY MOUTH EVERY DAY 02/08 completed Not Available Not Available Not Available acyclovir 800 mg tablet 12/01 completed Not Available Not Available Not Available pantopraz ole 20 mg tablet,de layed release TAKE 1 (ONE) TABLET BY MOUTH ONCE DAILY REASONS: HEARTBUR N 11/29 completed Not Available Not Available Not Available dextroamp hetamine- amphetami ne 30 mg tablet TAKE 1 TABLET BY MOUTH EVERY DAY BEFORE BREAKFAS T 12/01 completed Not Available Not Available Not Available oxycodone -acetamin ophen 5 mg-325 mg tablet TAKE 1 TABLET BY MOUTH EVERY 4 HOURS NEEDED FOR PAIN 02/08 completed Not Available Not Available Not Available magnesium oxide 400 mg (241.3 mg magnesium ) tablet TAKE 1 (ONE) TABLET BY MOUTH ONCE DAILY REASONS: PREVENTI ON OF HEADACHE S 11/29 completed Not Available Not Available Not Available gentamici n 0.3 % eye drops INSTILL 2 DROPS INTO AFFECTED EYE(S) 4 TIMES DAILY FOR 5 DAYS 10/18 completed Not Available Not Available Not Available Flagyl 500 mg tablet 10/18 completed Not Available Not Available Not Available erythromy jodie 5 mg/gram (0.5 %) eye ointment APPLY TO EYELIDS 3 TIMES A DAY FOR 7 DAYS 10/18 completed Not Available Not Available Not Available levothyro xine 125 mcg tablet TAKE 1 TABLET BY MOUTH EVERY DAY 12/01 completed Not Available Not Available Not Available neomycin- polymyxin -dexameth 3.5 mg/mL-10, 000 unit/mL-0 .1% eye drops INSTILL 1 2 DROPS INTO AFFECTED EYE(S) 4 TIMES DAILY FOR 5 7 DAYS 10/18 completed Not Available Not Available Not Available dextroamp hetamine- amphetami ne 20 mg tablet TAKE 1 TABLET BY MOUTH TWICE DAILY active Not Available Not Available No t Available ursodiol 300 mg capsule TAKE 1 CAPSULE BY MOUTH TWICE DAILY 11/29 completed Not Available Not Available Not Available Synthroid 75 mcg tablet take 1 tablet (75MCG) by oral route every day 03/25 completed Prescrib ed Elsewher e: No Locat ion: [facility] odify By: [email or web address] Trant er DateTime : 03/22/20 14 10:44:01 AM Not Available Not Available Not Available Synthroid 50 mcg tablet take 1 tablet (50MCG) by oral route every day 06/21 completed Prescrib ed Elsewher e: No Locat ion: [facility] odify By: [email or web address] mariahk En counter DateTime : 11/11/19 13 03:00:00 PM Not Available Not Available Not Available docusate sodium 100 mg capsule TAKE ONE CAPSULE BY MOUTH EVERY DAY 11/29 completed Not Available Not Available Not Available gabapenti n 300 mg capsule TAKE 1 TABLET BY MOUTH THE NIGHT BEFORE SURGERY, THEN TAKE 1 BY MOUTH TWICE A DAY AFTER SURGERY 02/08 completed Not Available Not Available Not Available hydroxyzi ne HCl 25 mg tablet TAKE 1 TABLET BY MOUTH EVERY 6 HOURS NEEDED FOR ITCHING 11/29 completed Not Available Not Available Not Available mupirocin 2 % topical ointment 12/01 completed Not Available Not Available Not Available Synthroid 112 mcg tablet TAKE 1 TABLET BY ORAL ROUTE EVERY DAY 01/01 completed Prescrib ed Elsewher e: No Locat ion: [facility] odify By: nicole larkin DateTime : 02/22/20 16 09:57:04 AM Not Available Not Available Not Available ergocalci ferol (vitamin D2) 1,250 mcg (50,000 unit) capsule TAKE 1 CAPSULE BY MOUTH ONE TIME PER WEEK 12/01 completed Not Available Not Available Not Available ibuprofen 600 mg tablet TAKE 1 TABLET BY MOUTH EVERY 6 HOURS NEEDED FOR PAIN 11/29 completed Not Available Not Available Not Available polyethyl margaret glycol 3350 17 gram/dose oral powder TAKE 17 GRAMS BY MOUTH ONCE DAILY 11/29 completed Not Available Not Available Not Available methylpre dnisolone 4 mg tablets in a dose pack TAKE 6 TABLETS ON DAY 1 DIRECTED ON PACKAGE AND DECREASE BY 1 TAB EACH DAY FOR A TOTAL OF 6 DAYS 02/08 completed Not Available Not Available Not Available dextroamp hetamine- amphetami ne ER 30 mg 24hr capsule,e xtend release TAKE 1 CAPSULE BY MOUTH EVERY DAY 11/29 completed Not Available Not Available Not Available Cipro 250 mg tablet 10/18 completed Not Available Not Available Not Available Terazol 7 0.4 % vaginal cream insert 1 applicat orful by vaginal route every day for 7 days at bedtime 07/10 completed Prescrib ed Luis e: No Locat ion: [facility] odify By: shemar Vora nter DateTime : 07/04/20 14 01:15:00 PM Not Available Not Available Not Available ondansetr on 4 mg disintegr ating tablet DISSOLVE 1 TABLET UNDER THE TONGUE EVERY 6 HOURS NEEDED FOR NAUSEA 02/08 completed Not Available Not Available Not Available cefdinir 300 mg capsule TAKE 1 CAPSULE BY MOUTH TWICE A DAY FOR 4 DAYS 02/08 completed Not Available Not Available Not Available fluticaso ne propionat e 50 mcg/actua tion nasal spray,frances pension SPRAY 1 2 SPRAY BY INTRANAS AL ROUTE EVERY DAY IN EACH NOSTRIL NEEDED 12/01 completed Not Available Not Available Not Available diazepam 5 mg tablet TAKE 1 TABLET BY MOUTH EVERY 6 HOURS NEEDED FOR MUSCLE SPASM PAIN 02/08 completed Not Available Not Available Not Available amoxicill in 875 mg-potass ium clavulana te 125 mg tablet 10/18 completed Not Available Not Available Not Available amoxicill in 500 mg-potass ium clavulana te 125 mg tablet TAKE 1 TABLET BY MOUTH 2 TIMES A DAY FOR 10 DAYS. 02/08 completed Not Available Not Available Not Available oxycodone 5 mg tablet TAKE 1 TABLET BY MOUTH EVERY 4 HOURS NEEDED FOR PAIN 11/29 completed Not Available Not Available Not Available Synthroid 137 mcg tablet TAKE 1 TABLET BY MOUTH EVERY MORNING active Not Available Not Available No t Available cyclobenz aprine 5 mg tablet 12/01 completed Not Available Not Available Not Available Klor-Con M20 mEq tablet,ex tended release TAKE 1 (ONE) TABLET BY MOUTH ONCE DAILY REASONS: LOW AMOUNT OF POTASSIU M IN THE BLOOD 04/10 completed Not Available Not Available Not Available nitrofura ntoin monohydra te/macroc rystals 100 mg capsule TAKE 1 CAPSULE BY MOUTH EVERY 12 HOURS WITH FOOD FOR 7 DAYS active Not Available Not Available No t Available Cipro 10/18 completed Not Available Not Available Not Available Synthroid 12/01 completed Not Available Not Available Not Available Macrobid 10/18 completed Not Available Not Available Not Available cholecalc iferol (vitamin D3) 50 mcg (2,000 unit) tablet TAKE 1 TABLET BY MOUTH EVERY DAY 07/19 completed Not Available Not Available Not Available Vitamin D2 12/01 completed Not Available Not Available Not Available Lomedia 24 Fe 1 mg-20 mcg (24)/75 mg (4) tablet TAKE 1 TABLET BY ORAL ROUTE EVERY DAY 04/01 completed Prescrib ed Luis e: No Locat ion: Maile banda [facility] odify By: shemar tz Encou nter DateTime : 03/15/20 02:30:00 PM Not Available Not Available Not Available Se-Yaima 19 29 mg iron-1 mg tablet TAKE 1 TABLET BY MOUTH EVERY DAY 11/29 completed Not Available Not Available Not Available ID NOW COVID-19 Test Kit 12/01 completed Not Available Not Available Not Available Vitals Date Recorded Body height Body mass index (BMI) Body weight Systolic blood pressure Diastolic blood pressure Provider Name and Address Organization Details Last Updated DateTime 10/14/2022 157.48 cm 25.6 kg/m2 81401.93 18 g 124 mm[Hg] 85 mm[Hg] Alejandra García [facility] 10:24:32 Date Recorded Systolic blood pressure Diastolic blood pressure Provider Name and Address Organization Details Last Updated DateTime 11/29/2022 120 mm[Hg] 80 mm[Hg] Emelina Marroquin, [facility]- [address], [place], [address], [facility] 12/17/2022 07:07:53 Date Recorded Body height Body mass index (BMI) Body weight Provider Name and Address Organization Details Last Updated DateTime 11/29/2022 157.48 cm 25.4 kg/m2 79413.34 g Soledad [facility] 11/29/2022 14:38:43 Date Recorded Body height Provider Name an d Address Organization Details Last Updated DateTime 02/17/2024 157.48 cm Soledad [facility] 02/17/2024 16:10:30 Date Recorded Body height Body mass index (BMI) Body weight Systolic blood pressure Diastolic blood pressure Systolic blood pressure Diastolic blood pressure Provider Name and Address Organization Details Last Updated DateTime 157.48 cm 28.9 kg/m2 33984.5 9446 g 143 mm[Hg] 96 mm[Hg] 144 mm[Hg] 100 mm[Hg] Denise Lugo [facility] 16:13:00 Social History Question Answer Notes LastModified by Organizat ion Details LastModified Time Tobacco Smoking Status Current Every Day [facility] 11/29/2022 14:20:41 Do You Have An Advance Directive? No [email or web address] Information n ot available 10/18/2020 If You Are , What Was Your Level Of Alcohol Consumption Prior To ? Moderate [email or web address] Information not available 11/29/2022 How Many Years Have You Consumed Alcohol? 15 [email or web address] Information not available 10/18/2020 Are You Blind Or Do You Have Difficulty Seeing? No [email or web address] Information n ot available 10/18/2020 What Is Your Level Of Caffeine Consumption? Moderate [email or web address] Information not available 06/05/2022 In The 14 Days Before Symptom Onset, Have You Had Close Contact With A Laboratory-confirm ed COVID-19 While That Case Was Ill? No [email or web address] Information n ot available 10/18/2020 In The 14 Days Before Symptom Onset, Have You Had Close Contact With A Person Who Is Under Investigation For COVID-19 While That Person Was Ill? No [email or web address] Information not available 10/18/2020 Have You Been To An Area Known To Be High Risk For COVID-19? No [email or web address] Information not available 10/18/2020 Are You Deaf Or Do You Have Serious Difficulty Hearing? No [email or web address] Information not available 10/18/2020 What Type Of Diet Are You Following? REGULAR [email or web address] Information n ot available 10/18/2020 What Is The Highest Grade Or Level Of School You Have Completed Or The Highest Degree You Have Received? CN30706-7 [email or web address] Information not available 10/18/2020 Are There Any Guns Present In Your Home? No Information not available 10/18/2020 Do You Use Protection During Sex? No [email or web address] Information not available 10/18/2020 Do You Use Your Seat Belt Or Car Seat Routinely? Yes [email or web address] Information not available 10/18/2020 Do You Have Smoke And Carbon Monoxide Detectors In Your Home? Yes [email or web address] Information not available 10/18/2020 How Much Tobacco Do You Smoke? No Information not available 10/18/2020 Do You Use Sunscreen Routinely? No [email or web address] Information not available 10/18/2020 How Many Years Have You Smoked Tobacco? 10 [email or web address] Information not available 10/18/2020 Have You Used IV Drugs? No [email or web address] Information not available 10/18/2020 Do You Have Difficulty Walking Or Climbing Stairs? No [email or web address] Information not available 11/29/2022 Sex: Unknown Functional Status Question Answer Note LastModified by Organizat ion Details LastModified Time Do you use any illicit or recreational drugs? No [email or web address] Information not available 10/18/2020 What is your level of alcohol consumption? None [email or web address] Information not available 02/08/2022 Are you able to walk? YESWOREST [email or web address] Information not available 10/18/2020 Are you able to care for yourself? 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 No Information not available 11/29/2022 What is your exercise level? Moderate [email or web address] Information not available 10/18/2020 Mental Status Question Answer Note LastModified by Organization D etails LastModified Time Do you feel stressed (tense, restless, nervous, or anxious, or unable to sleep at night)? [id number] [email or web address] Information not available 06/05/2022 Family History Relationship Description Onset Age of this Age Resolved Age Notes LastModified by Organization Details LastModified Time Father No current problems or disability [email or web address] Not available 02/16 15:55:04 Mother No current problems or disability Not available 02/16 15:55:04 Unspecified Relation Malignant tumor of breast matern al great aunt [email or web address] Not available 02/08/2022 18:12:01 Medical History Condition Response Allergies (Food, seasonal, environmental ) N Other N Breast Cancer N Drug/Latex Allergies/Reactions Y Blood Transfusion N Dermatologic Disorders N Lung Disease N Defects or Inherited Disease N Breast Problem Y Gestational Diabetes N Hematologic disorders N Anesthesia Complications N History of STI Y Deep Vein Thrombosis N Polycystic ovary syndrome N Anxiety Disorder Y Autoimmune disease Y Arthritis N Infertility N Polyps N Acid Reflux (GERD) N History of abnormal pap N Cancer N Stroke N Varicosities N Neurologic/Epilepsy Y Endometriosis N High Cholesterol N Headaches N Fibromyalgia N Kidney Disease N Heart Problems N Kidney or Bladder Problems Y Thyroid Problems Y GI Problems Y Eating Disorder N Anemia N Art (IVF or FET) N Psychiatric Illness N Ovarian Cancer N Diabetes N Pulmonary (TB, Asthma) N Hepatitis/Liver Disease N No Past Medical History N Eczema N Urinary Tract Infection N Abuse/Domestic Violence N Asthma N Trauma/Violence N Depression/ depression N Heart Disease N Pre-Eclampsia N Hypertension N Osteoporosis N Thrombophilias N Gynecological History Statement/Question Response Abnormal Pap N Date of Last Mammogram 02/19/2020 Date of LMP On BCP's at Conception? N N Was last menstrual period normal Y STIs/STDs Yes HPV Vaccine Y Duration of Flow (days) 7 Current Control Method None Age at First Child 23 Frequency of Cycle (Q days) 31 Sexually Active? Y Age of first menstrual cycle 13 Date of Last Pap Smear 02/08/2022 Sexual Problems? N Desired Control Method Withdrawal LMP Unknown N Obstetrics History GPAL:G 4 P 2 2 1 4 Type Value Multiple Births 1 Full Term 2 Spontaneous 1 Premature 2 Living 4 Total 4 Past Encounters Encounter ID Performer Location Encounter Start Date Encounter Closed Date Diagnosis/Indication Diagnosis SNOMED-CT Code Diagnosis ICD10 Code Diagnosis Note [id number] [facility] [address] [address] 11/25/2019 14:40:02 11/25/2019 15:43:28 Lesion of labia 914054997 N90.9 Her exam shows a right inner labial minora boil that appears to be resolving. It is barely visible & resembles a pimple like clogged pore. We discussed warm compresses to area; can use abx ointment for a few days. Let it finish resolving on it's own. Will send vag cx's to ensure no other issues. Time spent in visit is a total of 18 mins with at least 50% of visit consisting of counseling and review of plan of care. Herpes zoster 7335313 B0 2.9 Continue Acyclovir. If still have issues with this problem needs to find PCP Letter given x 2wks off If needs more time off needs to address this with PCP who will treat this issue. [id number] Emelina Marroquin , [facility] [address] [address] 10/18/2020 10:31:46 10/18/2020 11:24:15 Pain in pelvis 32780080 R10.2 Today we will schedule for US (tomorrow 10am) with ED precaution s. She will go home & rest using ibuprofen 600mg & prn Flexeril; hot packs or hot showers/ba ths; rest. Vag swab cx's sent Time spent in visit is a total of 26 mins with at least 50% of visit consisting of counseling and review of plan of care. Additional precaution duglas measures were taken to minimize potential exposure to the Covid-19 virus during this patient s visit, including available hand head bucker upon arrive, temperatur e check and being asked a series of screening questions. All staff wore face coverings during this encounter, as well as provided additional cleaning and sanitizing of all surfaces, including countertop s, pens, chairs, door handles, light switches, etc, prior to and following the patient s visit. [id number] Rian Minaya MD [facility] [address],[facility] [place] [address] 2020 11:02:36 2020 11:46:11 Abnormal uterine bleeding [id number] 9100 N93.9 R10.2 N85.2 R14.[id number] [facility] [address],[place] [address] 12/01/2020 12:06:35 12/01/2020 13:18:15 Mass of right breast [id number] 3761261 N63.10 N64.4 Prominent breast lumps (possibly fribrocyst ic tissue) right breast but some found in left as well; both painful and tender. Just completed her menstrual cycle & these area are still present. We agreed to updated imaging for this issue. Evening [place] oil for inflammati on daily x 90d. Will refer to breast specialist if needed. Time spent in visit is a total of 15 mins with at least 50% of visit consisting of counseling and review of plan of care. Additional precaution duglas measures were taken to minimize potential exposure to the Covid-19 virus during this patient s visit, including available hand head bucker upon arrive, temperatur e check and being asked a series of screening questions. All staff wore face coverings during this encounter, as well as provided additional cleaning and sanitizing of all surfaces, including countertop s, pens, chairs, door handles, light switches, etc, prior to and following the patient s visit. [id number] Rian Minaya MD [facility] [address],[facility] [place] [address] 02/08/2022 14:30:46 02/08/2022 15:11:03 screening [id number] Z36.9 Z3A.01 [id number] Debby Mejias CNM [facility] [address],[place] [address] 02/08/2022 14:32:06 02/08/2022 16:08:22 Gynecologic examination 27130038 Z01.419 Amenorrhea 98422503 N91. 2 [id number] Debby Mejias CNM [facility] [address],[place] [address] 03/13/2022 12:27:36 03/13/2022 14:06:47 Routine care 255587122 Z34.91 [id number] Rian Minaya MD [facility] [address],[place] [address] 03/26/2022 10:04:19 03/26/2022 13:41:29 Dichorionic diamniotic twin 499501762 O30.041 Z3A.13 [id number] Debby Mejias [facility] [address],[place] [address] 04/10/2022 14:41:45 04/10/2022 15:48:34 Routine care [id number] Z34.91 [id number] Debby Mejias [facility] [address],[place] [address] 05/10/2022 16:02:36 05/10/2022 16:57:57 -induced hypertension 59178213 O13.9 Routine an tenatal care 013296582 Z34.91 [id number] Rian Minaya MD [facility] [address],[place] [address] 05/16/2022 15:00:07 05/16/2022 17:29:34 Gestational diabetes mellitus class A1 20531256 O24.410 Called pt to go over diet teaching over the phone per pts request. Went over ideal ranges for FBS and pp BS. Went over carb counting and carb ranges for each meal/snack . Gave ideas for foods to eat for meals/snac ks. Discussed drink options and to avoid soda and juice as pt states she drinks 2 diet pepsis a day. Told pt she can go online to [employer] for meal options or to look up low carb meal recipes online for ideas as well. Pt is still waiting to sampler pickup testing supplies, but will start checking BS once she gets this in. Told pt to check BS QID and adjusting diet to follow low carb diet to try to keep BS within normal range. Pt aware if sugars aren't controlled by diet we would discuss starting insulin. Went over NST schedule with pt and that we will schedule these closer to 28wks and the need to consistent ly check BS for her and babies health. Pts questions were answered and pt verbalized understand ing. ZHANG nielson [id number] Debby Mejias, [facility] [address],[place] [address] 06/05/2022 17:56:53 06/06/2022 12:27:41 Routine care 318637339 Z34.91 [id number] Rian Minaya MD [facility] [address],[place] [address] 07/03/2022 14:31:27 07/03/2022 16:03:45 Polyhydramnios 01121859 O30.042 O40.2XX0 Z3A.27 [id number] Rian Minaya MD [facility] [address],[place] [address] 07/03/2022 14:32:01 07/03/2022 16:04:28 Twin [id number] O30.009 - induced hypertension 58446793 O13.9 [id number] Rian Minaya MD [facility] [address],[place] [address] 07/10/2022 17:49:39 07/10/2022 18:30:41 -induced hypertension 71991261 O13.9 JGrkayden received call from [facility] devonte lanette rpt PIH labs and PCR prior to the . Pt informed and c/o severe headache today. Pt scheduled for BP check. BP 134/91. Pt states RIVERA is in the front of her head and was not relived with Tylenol and caffeine. Pt states the headache did improve with ice. Pt also c/o possible facial and hand edema but her face does not appear puffy and her wedding ring is loose. Pt denies visual disturbanc es and denies epigastric pain. SB informed and recommende d L & D for BP monitoring and PIH labs but the pt was upset about another hospital eval. SB evaluated the pt and discussed her symptoms. SB informed pt her headache does not seem like a pre-eclamp anil headache because it is not pounding and she has no other symptoms. Pt and SB agreed for her to continue to monitor symptoms and report to L & D if the headache becomes worse or she develops a change in symptoms. Pt will have labs drawn in the office and leave urine for PCR. Pt will report to L & D if her severe headache continues or she experience s a change in symptoms. Kasey Kieran iefátima, [place] [id number] Debby Mejias [facility] [address],[place] [address] 07/19/2022 15:16:16 07/19/2022 16:59:26 Routine care 446525801 Z34.91 [id number] Rian Minaya MD [facility] [address],[place] [address] 07/19/2022 15:16:50 07/19/2022 16:26:22 Gestational diabetes mellitus class A2 47741103 O24.414 O30.043 O36.5932 [id number] Rian Minaya MD [facility] [address],[place] [address] 10/14/2022 10:15:59 10/14/2022 11:36:21 Female sterilization 54729153 Z30.2 This patient is a 36-year-ol d female presents for follow-up. She had twins. The delivered at a tertiary care center. complicate d also by gestationa l hypertensi on/preecla mpsia. She is bottle feeding, she has had intercours e. She is 8 weeks. Her bleeding has stopped. Her mood is good. Her baby is well. We agreed to perform laparoscop ic salpingect luther. I described the procedure the patient in detail. She understand s the risks, benefits, and her and alternativ es. She complete the informed consent process today [id number] [facility] [address],[place] [address] 11/29/2022 14:19:45 12/02/2022 15:46:19 Urinary tract infectious disease 94712870 N39.0 Pain in pelvis 53294029 R10.2 Today we will schedule for US (tomorrow 10am) with ED precaution s. She will go home & rest using ibuprofen 600mg & prn Flexeril; hot packs or hot showers/ba ths; rest. Vag swab cx's sent Time spent in visit is a total of 26 mins with at least 50% of visit consisting of counseling and review of plan of care. Additional precaution duglas measures were taken to minimize potential exposure to the Covid-19 virus during this patient s visit, including available hand head bucker upon arrive, temperatur e check and being asked a series of screening questions. All staff wore face coverings during this encounter, as well as provided additional cleaning and sanitizing of all surfaces, including countertop s, pens, chairs, door handles, light switches, etc, prior to and following the patient s visit. [id number] Rian Minaya MD [facility] [address] [address] 02/17/2024 15:54:51 02/17/2024 16:12:31 Urinary symptoms 625827385 R39.9 Health Concerns Section Related Observation LastModified by Organization Detai ls LastModified Time None Recorded Concern Status LastModified by Organization Details LastModified Time None Recorded Advance Directives Directive N: Payers Encounter Date Sequence Insurance Name Policy Number Policy Castaneda Covered Member ID Castaneda Member ID Guarantor Name 07/19/2022 1 [employer] [id number] Rashad L Loyet [id number] 1 Rashad L Loyet 07/19/2022 1 [employer] [id number] Rashad L Loyet [id number] 1 Rashad L Loyet 10/14/2022 1 [employer] [id number] Rashad L Loyet [id number] 1 Rashad L Loyet 11/29/2022 1 [employer] [id number] Rashad L Loyet [id number] 1 Rashad L Loyet 02/17/2024 1 [employer] [id number] Rashad L Loyet [id number] 1 Rashad L Loyet Notes Date Note Type Note Provider Name and Address Organization Details Recorded Time 10/14/2022 text/html This patient is a 36-year-old female presents for follow-up. She had twins. The delivered at a tertiary care center. complicated also by gestational hypertension/preec lampsia. She is bottle feeding, she has had intercourse. She is 8 weeks. Her bleeding has stopped. Her mood is good. Her baby is well. We agreed to perform laparoscopic salpingectomy. I described the procedure the patient in detail. She understands the risks, benefits, and her and alternatives. She complete the informed consent process today Rian Minaya MD [address], [place], [address], [facility] 10/14/2022 11:13:58 11/29/2022 text/html Patient is a 37y o white female here today for sx's of dysuria, urgency & frequency; and lower abd pressure and pelvic cramping. Neg pain of abd/flank/Neg GI sx'sNeg N/V/F/C/DNeg Vag d/c, odor, irritation, itchingNeg new partnersNeg AUB Emelina Marroquin, [facility]- [address], [place], [address], [facility] 12/17/2022 07:11:16 OBGyn Episode Ob Episode Information Episode Created Date Number of Fetuses Patient Bloodtype Patient rh Status Prepregnancy Weight lbs Domestic Partner Domestic Partner Phone Father Name Gold Miner Status 11/25/19 20 1 CLOSED Fetus Data First Name Last Name Admitted to NICU Weight (g) Sex Living Outcome Pediatric Complications Fetus ID Race Codes Race Delivery Type 3430.06 2704 M Full Term 1241 Vaginal Delivery Jarod Calculation Initial Jarod Date Initial Exam Date Initial Exam Provider Initial Ultrasound Date Last Menstrual Period Date Ultra Sound Weeks Gestation 0 Eighteen To Twenty Week Jarod Update Ultra Sound Date Fundal Height At Umbil Quickening Date Ultra Sound Latest Weeks Gestation Final Jarod Confirmed By Final Jarod Confirmed Date Final Jarod Date Ultra Sound Latest Days Gestation 0 0 Menstrual History Last Menstrual Date Menses Monthly On Bcp Conception Prior Menses Frequency Hcg Plus Date Menarche Onset Age Delivery Information Delivery Date Delivery Type Labor Anesthesia Weeks Gestation Incision Type Labor Labor Length Hrs Delivered By Post Complications Tubal Sterilization Discharge Date Comments 0 39 Discharge Information Feeding Method Contraceptive Method Maternal HG B and HCT Levels Ob Episode Information Episode Created Date Number of Fetuses Patient Bloodtype Patient rh Status Prepregnancy Weight lbs Domestic Partner Domestic Partner Phone Father Name Gold Miner Status 11/25/19 20 1 CLOSED Fetus Data First Name Last Name Admitted to NICU Weight (g) Sex Living Outcome Pediatric Complications Fetus ID Race Codes Race Delivery Type 3912.23 1 F Full Term 1240 Vaginal Delivery Jarod Calculation Initial Jarod Date Initial Exam Date Initial Exam Provider Initial Ultrasound Date Last Menstrual Period Date Ultra Sound Weeks Gestation 0 Eighteen To Twenty Week Jarod Update Ultra Sound Date Fundal Height At Umbil Quickening Date Ultra Sound Latest Weeks Gestation Final Jarod Confirmed By Final Jarod Confirmed Date Final Jarod Date Ultra Sound Latest Days Gestation 0 0 Menstrual History Last Menstrual Date Menses Monthly On Bcp Conception Prior Menses Frequency Hcg Plus Date Menarche Onset Age Delivery Information Delivery Date Delivery Type Labor Anesthesia Weeks Gestation Incision Type Labor Labor Length Hrs Delivered By Post Complications Tubal Sterilization Discharge Date Comments 3 39 Discharge Information Feeding Method Contraceptive Method Maternal HG B and HCT Levels Ob Episode Information Episode Created Date Number of Fetuses Patient Bloodtype Patient rh Status Prepregnancy Weight lbs Domestic Partner Domestic Partner Phone Father Name Gold Miner Status 10/19/19 21 1 CLOSED Fetus Data First Name Last Name Admitted to NICU Weight (g) Sex Living Outcome Pediatric Complications Fetus ID Race Codes Race Delivery Type , Spontane ous 8720 Jarod Calculation Initial Jarod Date Initial Exam Date Initial Exam Provider Initial Ultrasound Date Last Menstrual Period Date Ultra Sound Weeks Gestation 0 Eighteen To Twenty Week Jarod Update Ultra Sound Date Fundal Height At Umbil Quickening Date Ultra Sound Latest Weeks Gestation Final Jarod Confirmed By Final Jarod Confirmed Date Final Jarod Date Ultra Sound Latest Days Gestation 0 0 Menstrual History Last Menstrual Date Menses Monthly On Bcp Conception Prior Menses Frequency Hcg Plus Date Menarche Onset Age Delivery Information Delivery Date Delivery Type Labor Anesthesia Weeks Gestation Incision Type Labor Labor Length Hrs Delivered By Post Complications Tubal Sterilization Discharge Date Comments 9 Discharge Information Feeding Method Contraceptive Method Maternal HG B and HCT Levels Ob Episode Information Episode Created Date Number of Fetuses Patient Bloodtype Patient rh Status Prepregnancy Weight lbs Domestic Partner Domestic Partner Phone Father Name Gold Miner Status 03/13/20 22 2 B Positive 155 kvng stirnam an CLOSED Fetus Data First Name Last Name Admitted to NICU Weight (g) Sex Living Outcome Pediatric Complications Fetus ID Race Codes Race Delivery Type true 2381.35 8 M true Prematur e 63554 Primary true 1820.03 79 M true Prematur e 48602 Primary Problems Problem Notes DRAW CORD BLOOD CARRIER TY PE ON BOTH BABIES AFTER DELIVERY!!07/10 PER [facility] RPT PCR/CMP&CBC WEEKLY & 2x weekly NSTs & BPP to start week of 07/22/[address] Peters - FULL TRANSFER TO [facility]! 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 05/10 failed 1 hour, PIH wnlbaseline 24 hour urine 04/11 negativeMFM WAX BALL KNOCK OUT WORKER consult 03/27. Early Level II on 04/11 with genetic counseling & RN visitRpt Level II & [employer] B[employer]OCK OUT WORKER consult 05/08/22, 06/05 730A U/S & [employer] B[employer] K[employer]OCK OUT WORKER, 06/26, & 07/17/22 u/s , W[employer] BALL KNOCK OUT WORKER and DE Problem Name Start Date End Date Resolution Snomed Code Not e Echocardiogram abnormal 516260904 Baby B - narrow ed transverse arch. echo needed after delivery! & CORD BLOOD CARRIER NEEDED on each baby after delivery!! Hypokalemia 84358193 recheck K+ Gestational diabetes mellitus 06/05/2022 24695813 Suspect trisomy 21 fetus 684110750 +NIPT - referre d for genetic counseling/amnio - schd 04/11 Headache 80092714 mag oxide sent by [facility] Anxiety 09712804 [facility] rec co unseling - need to touch base with pt to make sure she has the resources she needs. ,rn Tobacco user [id number] rec vidal sation section - at term to do cesa rean for twins and HTN at 37 weeks -induced hypertension 33169848 Twin 12960950 amada - early gtt screen, LD ASA 162mg, 1wk NST+BPP at 36wks, serial growth starting at 24 wks Pyelonephritis 24747067 histo ry - check for bacteruria monthly, supression abx if needed, Treated with IV gent 06/10/22 followed by 10 days of po macrobid. Pt is now on prophylactic abx per MFM Anemia 05/13/2022 MEDICATION 595074051 slowfe 1 tab daily - 07/03 04/27 hgb Adult attention deficit hyperactivity disorder 572594895 adderall - seri al growth u/s Sepsis 83938491 acute with renal failure er MFM monthly urine culture, suppression abx if needed History of cholecystectomy 395478812 2013 Herpes simplex 95726421 valcy lclovir daily Hypothyroidism in MEDICATION 902489140 Sees endocrinol ogist Dr. Sams?*04/16 Synthroid increased to 162mcg per MFM & pt to f/u with Endo; rpt labs once trimester or 4-6 wks after change in dosage Advanced maternal age 575852676 Benign essential hypertension complicating , childbirth and the puerperium - not delivered 057426568 asa daily, per MFM 07/10 pt to start checking BP BID Jarod Calculation Initial Jarod Date Initial Exam Date Initial Exam Provider Initial Ultrasound Date Last Menstrual Period Date Ultra Sound Weeks Gestation 09/28/2022 03/13/2022 02/08/2022 12/07/2021 0 Eighteen To Twenty Week Jarod Update Ultra Sound Date Fundal Height At Umbil Quickening Date Ultra Sound Latest Weeks Gestation Final Jarod Confirmed By Final Jarod Confirmed Date Final Jarod Date Ultra Sound Latest Days Gestation 0 [email or web address] 03/22/2022 09/27/19 23 0 Pre- Flowsheet Flowsheet Date 03/13/2022 Loja Score Blood Edema Fundus Height Fundus Units Glucose Ketones Leukocytes Nitrite Labor Signs Protein Cervic Dilation Cervic Effacement Cervic Station neg none none trace Type Weight in lbs Pre/Post Dialysis Refused Weight 155.67896165276 BP Diastolic BP Location Tested BP Systolic BP Type 84 120 Fetus Heart Rate Present Fetus Movement A Yes B Yes Comments pt is a G3 2 with twin pregn tanner. 2 previous uncomplicated vaginal births. November of this year dx acute sepsis with renal failure. currently takin adderall and synthroid. plans to wean adderall in thrid trimester. MFM today and added labs to panel, panorama for twin gestation Flowsheet Date 03/26/2022 Loja Score Blood Edema Fundus Height Fundus Units Glucose Ketones Leukocytes Nitrite Labor Signs Protein Cervic Dilation Cervic Effacement Cervic Station Type Weight in lbs Pre/Post Dialysis Refused BP Diastolic BP Location Tested BP Systolic BP Type Fetus Heart Rate Present Fetus Movement Comments Flowsheet Date 04/10/2022 Loja Score Blood Edema Fundus Height Fundus Units Glucose Ketones Leukocytes Nitrite Labor Signs Protein Cervic Dilation Cervic Effacement Cervic Station neg none none trace Type Weight in lbs Pre/Post Dialysis Refused Weight 153.260216094071 BP Diastolic BP Location Tested BP Systolic BP Type 92 134 Fetus Heart Rate Present Fetus Movement A Yes B Yes Comments patient states that having s ome nausea. +FM on US x 2 and +FHR, pt anxious about appt tomorrow with MFM. pt does not want to do amnio, draw labs today and f/u here in 4 weeks, precautions reviewed f/u 4 weeks Flowsheet Date 05/10/2022 Loja Score Blood Edema Fundus Height Fundus Units Glucose Ketones Leukocytes Nitrite Labor Signs Protein Cervic Dilation Cervic Effacement Cervic Station neg none none trace Type Weight in lbs Pre/Post Dialysis Refused Weight 155.72644166566 BP Diastolic BP Location Tested BP Systolic BP Type 93 140 Fetus Heart Rate Present Fetus Movement A Yes B Yes Comments elevated bp, asymptomatic, c heck labs, cont to see MFM, baby b they think has trisomy 21, 3 soft markers, declined amnio, has echo scheduled, both heart rates doppled on US by Tony sr RN, precautions reviewed f/u 4 weeks, early glucose today Flowsheet Date 05/16/2022 Loja Score Blood Edema Fundus Height Fundus Units Glucose Ketones Leukocytes Nitrite Labor Signs Protein Cervic Dilation Cervic Effacement Cervic Station Type Weight in lbs Pre/Post Dialysis Refused BP Diastolic BP Location Tested BP Systolic BP Type Fetus Heart Rate Present Fetus Movement Comments Flowsheet Date 06/05/2022 Loja Score Blood Edema Fundus Height Fundus Units Glucose Ketones Leukocytes Nitrite Labor Signs Protein Cervic Dilation Cervic Effacement Cervic Station neg trace none trace Type Weight in lbs Pre/Post Dialysis Refused Weight 157.647261332188 BP Diastolic BP Location Tested BP Systolic BP Type 93 137 Fetus Heart Rate Present A 154 B 146 Fetus Movement A Yes B Yes Comments Saw MFM this am baby a breec h, disc section if baby A continues to be breech, recently diagnosed GDM, unable to check sugars due to monitor malfunction, would prefer diabetic meter in her arm, will have to consult MFM and have them watch her blood sugars, RN to call in am. Urine culture sentplan 28 week labs with thyroid and PIH labs at next visit, plan to see DR. Minaya at next visitprecautions reviewed. continue close follow up and management with MFM Flowsheet Date 07/03/2022 Loja Score Blood Edema Fundus Height Fundus Units Glucose Ketones Leukocytes Nitrite Labor Signs Protein Cervic Dilation Cervic Effacement Cervic Station Type Weight in lbs Pre/Post Dialysis Refused BP Diastolic BP Location Tested BP Systolic BP Type Fetus Heart Rate Present Fetus Movement Comments Flowsheet Date 07/03/2022 Loja Score Blood Edema Fundus Height Fundus Units Glucose Ketones Leukocytes Nitrite Labor Signs Protein Cervic Dilation Cervic Effacement Cervic Station Type Weight in lbs Pre/Post Dialysis Refused Weight 156.615381655933 BP Diastolic BP Location Tested BP Systolic BP Type 99 R arm 134 sitting Fetus Heart Rate Present Fetus Movement Comments [facility] blood [facility], lengthy discussion regarding primary for twins. We agreed to perform delivery at 37 weeks for gestational hypertension and twin . She has multiple complications of this including a severe pyelonephritis, anemia, hypokalemia. , to get labs today. we spent over 20 minutes today together, more than 50% was counseling Flowsheet Date 07/10/2022 Loja Score Blood Edema Fundus Height Fundus Units Glucose Ketones Leukocytes Nitrite Labor Signs Protein Cervic Dilation Cervic Effacement Cervic Station Type Weight in lbs Pre/Post Dialysis Refused BP Diastolic BP Location Tested BP Systolic BP Type 91 134 Fetus Heart Rate Present Fetus Movement Comments Flowsheet Date 07/19/2022 Loja Score Blood Edema Fundus Height Fundus Units Glucose Ketones Leukocytes Nitrite Labor Signs Protein Cervic Dilation Cervic Effacement Cervic Station neg trace none trace Type Weight in lbs Pre/Post Dialysis Refused Weight [id number] BP Diastolic BP Location Tested BP Systolic BP Type 96 143 100 144 Fetus Heart Rate Present Fetus Movement A Decreased B Yes Comments patient is having some BH co ntractions, swelling, nausea and vomiting.dr minaya out of office, spoke with him about pt care, pt to ld for labs as bp's higher than usual, denies sxs. plan to transfer care to [facility] until after , pt understands, NST x 2 reassuring, did not bring blood sugar logurine sent for culture Flowsheet Date 07/19/2022 Loja Score Blood Edema Fundus Height Fundus Units Glucose Ketones Leukocytes Nitrite Labor Signs Protein Cervic Dilation Cervic Effacement Cervic Station Type Weight in lbs Pre/Post Dialysis Refused BP Diastolic BP Location Tested BP Systolic BP Type Fetus Heart Rate Present Fetus Movement Comments Flowsheet Date 10/14/2022 Loja Score Blood Edema Fundus Height Fundus Units Glucose Ketones Leukocytes Nitrite Labor Signs Protein Cervic Dilation Cervic Effacement Cervic Station Type Weight in lbs Pre/Post Dialysis Refused Weight 140.859326668677 BP Diastolic BP Location Tested BP Systolic BP Type 85 R arm 124 sitting Fetus Heart Rate Present Fetus Movement Comments Menstrual History Last Menstrual Date Menses Monthly On Bcp Conception Prior Menses Frequency Hcg Plus Date Menarche Onset Age 0512/07/2021 Genetic Screening And Infection History Question Response Note Mental Retardation/Autism false Patient's Age Will Be 35 Yea rs Or Older At Estimated Date of Delivery true Thalassemia (Albanian, Sierra Leonean, Mediterranean, Or Background): MCV < 80 false Neural Tube Defect (Meningom yelocele, Spina Bifida, Or Anencephaly) false Congenital Heart Defect false Down Syndrome false Emmett-Sachs (eg, Adventism, Cajun , Urdu-[place]) false Jaylene Disease false Sickle Cell Disease Or Trait () false Hemophilia Or Other Blood Disorders false Muscular Dystrophy false Cystic Fibrosis false Lucie's Chorea false Intellectual Disability/Autism false If Yes, Was Person Tested For Fragile X? false Other Inherited Genetic Or C hromosomal Disorder false Maternal Metabolic Disorder (eg, Type 1 Diabetes, PKU) false Patient Or Baby's Father Had A Child With Defects Not Listed Above false Recurrent Loss, Or A Stillbirth false Medications (including Suppl ements, Vitamins, Herbs, OTC Drugs), Illicit/Recreational Drugs, Alcohol true adderall, synthroi d, pnv, vit d, valcyclovir If Yes, Agent(s) And Strength/Dosage false Any Other Genetic History false Live With Someone With TB Or Exposed To TB false Patient Or Partner Has Histo ry Of Genital Herpes false Rash Or Viral Illness Since Last Menstrual Period false History Of STD, Gonorrhea, C hlamydia, HPV, Syphilis true hsv Other Infection History true acute re nal failure/sepsis History of HIV false History of Hepatitis false Prior GBS-infected child false Hemoglobinopathy Or Carrier false Other Structural Defect false Recent Travel History Outside of Country false Delivery Information Delivery Date Delivery Type Labor Anesthesia Weeks Gestation Incision Type Labor Labor Length Hrs Delivered By Post Complications Tubal Sterilization Discharge Date Comments 3 None [facility] 34.3 Low Transvers e true Elen Riggs MD Discharge Information Feeding Method Contraceptive Method Maternal HG B and HCT Levels Bottle BLT
== END 2024-12-28 14:29 | disposition home or self-care (01) ==
PROVIDERS: PCP Family Medicine; Visit Provider Surgery Plastic and Reconstructive Surgery
DX: Z12.31 Encounter for screening mammogram for malignant neoplasm of breast (principal)
CPT/HCPCS: 77063; 77067